=== PATIENT | female | born 1940 | race Caucasian/White ===

== ENCOUNTER → 2017-05-19 | Outpatient (REF) | payer MEDICARE, OTHER | LOC: M LAB REF 13:44 | PROVIDERS: ATTEND Internal Medicine | DX: R56.9 Unspecified convulsions (principal) ==

== ENCOUNTER 2018-08-21 10:43 | Day surgery (SDC) | payer MEDICARE ==
[2018-08-21] MEDS: NS 1,000 ML IV (11:14)
[2018-08-21] MEDS ORDERED: PROPOFOL 200 MG/20 ML VIAL As Ordered ×2 (11:16)
[2018-08-21] MEDS ORDERED: LIDOCAINE 2% INJ 100 MG/5 ML SDV (FOR ANES.) As Ordered (11:17)
== END 2018-08-21 13:07 | disposition home or self-care (01) ==
LOC: M OPP 10:43
DX: Z12.11 Encounter for screening for malignant neoplasm of colon (principal); K63.5 Polyp of colon; K64.0 First degree hemorrhoids; K57.30 Diverticulosis of large intestine without perforation or abscess without bleeding; G40.909 Epilepsy, unspecified, not intractable, without status epilepticus; M85.9 Disorder of bone density and structure, unspecified; Z80.0 Family history of malignant neoplasm of digestive organs; Z88.8 Allergy status to other drugs, medicaments and biological substances; Z79.899 Other long term (current) drug therapy
CPT/HCPCS: 45380

== ENCOUNTER → 2019-01-02 | Outpatient (REF) | payer MEDICARE ==
[~2019-01-02] MED LIST: CALTCHW4 PO; DILA100C PO; MULT1TAB10 PO
[2019-01-02 16:32] LABS: PHENYTOIN (DILANTIN) 3.6 UG/ML (10.0-20.0)
[2019-01-02 16:41] LABS: FOLATE 11.7 NG/ML (>5.4)
== END ==
LOC: M LAB REF 15:50
PROVIDERS: ATTEND Internal Medicine
DX: R56.9 Unspecified convulsions (principal); Z79.899 Other long term (current) drug therapy

== ENCOUNTER 2020-10-06 11:15 | Emergency (ER) | payer MEDICARE ==
[~2020-10-06] VITALS: Ht 172.7 cm; Wt 75.0 kg
[2020-10-06] MEDS ORDERED: AMIO200T3 (11:35)
[2020-10-06] MEDS ORDERED: MIDO5TA (11:35)
[2020-10-06] MEDS ORDERED: GABA-1171 (11:35)
[2020-10-06] MEDS ORDERED: ELIQ2.5T (11:35)
[2020-10-06] MEDS ORDERED: OXYMETAZOLINE 0.05% NASAL SPRAY (AFRIN) ONE (12:15)
[2020-10-06 12:34] LABS: HEMATOCRIT 39.1 % (36.0-47.0); HEMOGLOBIN 11.9 g/dl (12.0-15.5); MEAN CORPUSCULAR HEMOGLOBIN 28.3 pg (27.0-33.0); MEAN CORPUSCULAR HGB CONC 30.4 g/dl (32.0-36.5); MEAN CORPUSCULAR VOLUME 92.9 fl (80.0-96.0); PLATELET COUNT, AUTOMATED 217 10^3/uL (150-450); RED BLOOD COUNT 4.21 10^6/uL (4.00-5.40); WHITE BLOOD COUNT 7.4 10^3/uL (4.0-10.0)
[2020-10-06 12:43] LABS: INR 1.12; PROTHROMBIN TIME 14.6 SECONDS (12.5-14.3)
[2020-10-06 12:44] LABS: PARTIAL THROMBOPLASTIN TIME 30.6 SECONDS (24.2-38.5)
[2020-10-06 17:04] VITALS: BP 133/80
== END 2020-10-06 17:06 | disposition home or self-care (01) ==
LOC: M ED 11:15 → EDBD 11:15 → M ED 17:06
DX: R04.0 Epistaxis (principal); I48.91 Unspecified atrial fibrillation; M81.0 Age-related osteoporosis without current pathological fracture; Z79.899 Other long term (current) drug therapy; Z79.01 Long term (current) use of anticoagulants; Z88.0 Allergy status to penicillin; Z88.8 Allergy status to other drugs, medicaments and biological substances

== ENCOUNTER → 2021-11-23 | Outpatient (REF) | payer MEDICARE ==
[~2021-11-23] MED LIST changes: +AMIO200T49; +BACTDSTA; +ELIQ2.5T; +GABA-1171; +MIDO5TA
== END ==
LOC: M LAB REF 17:23
PROVIDERS: ATTEND Internal Medicine
DX: N39.0 Urinary tract infection, site not specified (principal)

== ENCOUNTER 2021-11-24 15:39 | Emergency (ER) | payer MEDICARE ==
[~2021-11-24] VITALS: Ht 172.7 cm; Wt 77.3 kg
[~2021-11-24 15:39] MED LIST changes: -BACTDSTA
[2021-11-24 15:40] VITALS: BP 128/60
[2021-11-24] MEDS ORDERED: BACTDSTA (15:51)
[2021-11-24] MEDS ORDERED: PERCOCET 5MG/325MG TAB PO ONE (19:05)
== END 2021-11-24 19:37 | disposition home or self-care (01) ==
LOC: M ED 15:39
DX: R22.41 Localized swelling, mass and lump, right lower limb (principal); M25.561 Pain in right knee; I48.91 Unspecified atrial fibrillation; M81.0 Age-related osteoporosis without current pathological fracture; R56.9 Unspecified convulsions; Z87.19 Personal history of other diseases of the digestive system; Z79.899 Other long term (current) drug therapy; Z79.01 Long term (current) use of anticoagulants; Z88.0 Allergy status to penicillin; Z88.8 Allergy status to other drugs, medicaments and biological substances

== ENCOUNTER → 2021-11-27 | Outpatient (CLI) | payer MEDICARE ==
[~2021-11-27] MED LIST changes: +BACTDSTA
== END ==
LOC: M SOG 09:25
PROVIDERS: ATTEND Orthopaedic Surgery Adult Reconstructive Orthopaedic Surgery
DX: M25.561 Pain in right knee (principal)

== ENCOUNTER 2021-12-06 12:24 | Inpatient (IN) | payer MEDICARE ==
[~2021-12-06] VITALS: Ht 172.7 cm; Wt 81.0 kg
[~2021-12-06 12:24] MED LIST changes: -AMIO200T49; +AMIO200T49 PO; -ELIQ2.5T; +ELIQ2.5T PO; -GABA-1171; +GABA-1171 PO; -MIDO5TA; +MIDO5TA PO
[2021-12-06 15:22] LABS: BASO # 0.1 10^3/uL (0.0-0.2); BASO % 0.7 % (0.0-1.0); EOS # 0.5 10^3/uL (0.0-0.5); HEMATOCRIT 38.9 % (36.0-47.0); HEMOGLOBIN 12.4 g/dl (12.0-15.5); LYMPH # 1.2 10^3/uL (1.5-5.0); LYMPH % 12.4 % (24.0-44.0); MEAN CORPUSCULAR HEMOGLOBIN 29.3 pg (27.0-33.0); MEAN CORPUSCULAR HGB CONC 31.9 g/dl (32.0-36.5); MONO # 0.7 10^3/uL (0.0-0.8); MONO % 7.4 % (2.0-8.0); NEUTROPHILS # 7.3 10^3/uL (1.5-8.5); NEUTROPHILS % 74.2 % (36.0-66.0); PLATELET COUNT, AUTOMATED 238 10^3/uL (150-450); RED BLOOD COUNT 4.23 10^6/uL (4.00-5.40); WHITE BLOOD COUNT 9.9 10^3/uL (4.0-10.0)
[2021-12-06 15:42] LABS: RSV AMPLIFICATION NEGATIVE (NEGATIVE)
[2021-12-06 16:37] LABS: ALBUMIN 3.5 GM/DL (3.2-5.2); ALT/SGPT 19 U/L (12-78); BILIRUBIN,TOTAL 0.4 MG/DL (0.2-1.0); BLOOD UREA NITROGEN 21 MG/DL (7-18); CALCIUM LEVEL 8.9 MG/DL (8.8-10.2); CARBON DIOXIDE LEVEL 27 MEQ/L (21-32); CHLORIDE LEVEL 111 MEQ/L (98-107); CREATININE FOR GFR 0.87 MG/DL (0.55-1.30); GLOMERULAR FILTRATION RATE > 60.0 (>39); GLUCOSE, FASTING 89 MG/DL (70-100); POTASSIUM SERUM 4.4 MEQ/L (3.5-5.1); SODIUM LEVEL 142 MEQ/L (136-145); TOTAL PROTEIN 6.3 GM/DL (6.4-8.2)
[2021-12-06] MEDS ORDERED: MOM 30ML SUSPENSION UDC PO PRN (17:15)
[2021-12-06] MEDS ORDERED: ACETAMINOPHEN TAB 650MG DOSE (2X325MG) PO PRN ×2 (17:15→17:50)
[2021-12-06] MEDS ORDERED: HOME MED LIST COMPLETE! XX SCH (17:25)
[2021-12-06] MEDS: APIXABAN 2.5 MG TAB (ELIQUIS) PO SCH (21:14)
[2021-12-06] MEDS: GABAPENTIN 100 MG CAP PO SCH (21:14)
[2021-12-06] MEDS ORDERED: PILL CUTTER 1 EACH XX ONE (22:50)
[2021-12-07 06:05] LABS: HEMATOCRIT 38.2 % (36.0-47.0); HEMOGLOBIN 12.2 g/dl (12.0-15.5); MEAN CORPUSCULAR HEMOGLOBIN 29.5 pg (27.0-33.0); MEAN CORPUSCULAR HGB CONC 31.9 g/dl (32.0-36.5); MEAN CORPUSCULAR VOLUME 92.5 fl (80.0-96.0); PLATELET COUNT, AUTOMATED 214 10^3/uL (150-450); RED BLOOD COUNT 4.13 10^6/uL (4.00-5.40); WHITE BLOOD COUNT 6.7 10^3/uL (4.0-10.0)
[2021-12-07 06:29] LABS: BLOOD UREA NITROGEN 16 MG/DL (7-18); CALCIUM LEVEL 8.9 MG/DL (8.8-10.2); CARBON DIOXIDE LEVEL 26 MEQ/L (21-32); CHLORIDE LEVEL 111 MEQ/L (98-107); CREATININE FOR GFR 0.87 MG/DL (0.55-1.30); GLOMERULAR FILTRATION RATE > 60.0 (>39); GLUCOSE, FASTING 93 MG/DL (70-100); MAGNESIUM LEVEL 2.1 MG/DL (1.8-2.4); POTASSIUM SERUM 4.2 MEQ/L (3.5-5.1); SODIUM LEVEL 143 MEQ/L (136-145)
[2021-12-07 08:30] VITALS: BP 148/73
[2021-12-07] MEDS: AMIODARONE 200 MG TAB (PACERONE) PO SCH (09:43)
[2021-12-07] MEDS: APIXABAN 2.5 MG TAB (ELIQUIS) PO SCH ×2 (09:43→20:12)
[2021-12-07] MEDS: GABAPENTIN 100 MG CAP PO SCH ×3 (09:43→20:12)
[2021-12-07 14:00] VITALS: BP 109/71
[2021-12-07 20:28] VITALS: BP 111/68
[2021-12-07] MEDS: ACETAMINOPHEN 500 MG TAB PO PRN (23:35)
[2021-12-08 05:17] VITALS: BP 114/70
[2021-12-08 05:49] LABS: HEMATOCRIT 38.3 % (36.0-47.0); HEMOGLOBIN 12.1 g/dl (12.0-15.5); MEAN CORPUSCULAR HEMOGLOBIN 29.2 pg (27.0-33.0); MEAN CORPUSCULAR HGB CONC 31.6 g/dl (32.0-36.5); MEAN CORPUSCULAR VOLUME 92.3 fl (80.0-96.0); PLATELET COUNT, AUTOMATED 215 10^3/uL (150-450); RED BLOOD COUNT 4.15 10^6/uL (4.00-5.40); WHITE BLOOD COUNT 6.1 10^3/uL (4.0-10.0)
[2021-12-08 06:14] LABS: BLOOD UREA NITROGEN 16 MG/DL (7-18); CALCIUM LEVEL 8.8 MG/DL (8.8-10.2); CARBON DIOXIDE LEVEL 25 MEQ/L (21-32); CHLORIDE LEVEL 113 MEQ/L (98-107); CREATININE FOR GFR 0.71 MG/DL (0.55-1.30); GLOMERULAR FILTRATION RATE > 60.0 (>39); GLUCOSE, FASTING 96 MG/DL (70-100); MAGNESIUM LEVEL 2.1 MG/DL (1.8-2.4); POTASSIUM SERUM 4.1 MEQ/L (3.5-5.1); SODIUM LEVEL 144 MEQ/L (136-145)
[2021-12-08 08:42] VITALS: BP 114/70
[2021-12-08] MEDS: APIXABAN 2.5 MG TAB (ELIQUIS) PO SCH ×2 (10:06→21:04)
[2021-12-08] MEDS: GABAPENTIN 100 MG CAP PO SCH ×3 (10:07→21:04)
[2021-12-08] MEDS: AMIODARONE 200 MG TAB (PACERONE) PO SCH (10:07)
[2021-12-08 14:00] VITALS: BP 120/70
[2021-12-08] MEDS: ACETAMINOPHEN 500 MG TAB PO PRN (21:04)
[2021-12-08 21:12] VITALS: BP 116/67
[2021-12-09 05:59] LABS: HEMATOCRIT 39.7 % (36.0-47.0); HEMOGLOBIN 12.3 g/dl (12.0-15.5); MEAN CORPUSCULAR HEMOGLOBIN 28.9 pg (27.0-33.0); MEAN CORPUSCULAR VOLUME 93.2 fl (80.0-96.0); PLATELET COUNT, AUTOMATED 217 10^3/uL (150-450); RED BLOOD COUNT 4.26 10^6/uL (4.00-5.40); WHITE BLOOD COUNT 8.5 10^3/uL (4.0-10.0)
[2021-12-09 06:00] VITALS: BP 129/79
[2021-12-09 06:20] LABS: BLOOD UREA NITROGEN 23 MG/DL (7-18); CALCIUM LEVEL 8.8 MG/DL (8.8-10.2); CARBON DIOXIDE LEVEL 26 MEQ/L (21-32); CHLORIDE LEVEL 112 MEQ/L (98-107); CREATININE FOR GFR 0.77 MG/DL (0.55-1.30); GLOMERULAR FILTRATION RATE > 60.0 (>39); GLUCOSE, FASTING 105 MG/DL (70-100); MAGNESIUM LEVEL 2.2 MG/DL (1.8-2.4); POTASSIUM SERUM 4.2 MEQ/L (3.5-5.1); SODIUM LEVEL 145 MEQ/L (136-145)
[2021-12-09] MEDS: AMIODARONE 200 MG TAB (PACERONE) PO SCH (09:23)
[2021-12-09] MEDS: GABAPENTIN 100 MG CAP PO SCH ×3 (09:23→20:41)
[2021-12-09] MEDS: APIXABAN 2.5 MG TAB (ELIQUIS) PO SCH ×2 (09:23→20:41)
[2021-12-09 14:00] VITALS: BP 104/60
[2021-12-09] MEDS: traMADol 50 MG TAB PO PRN (16:08)
[2021-12-09 22:26] VITALS: BP 113/60
[2021-12-10 05:59] LABS: HEMATOCRIT 36.1 % (36.0-47.0); HEMOGLOBIN 11.5 g/dl (12.0-15.5); MEAN CORPUSCULAR HEMOGLOBIN 29.1 pg (27.0-33.0); MEAN CORPUSCULAR HGB CONC 31.9 g/dl (32.0-36.5); MEAN CORPUSCULAR VOLUME 91.4 fl (80.0-96.0); PLATELET COUNT, AUTOMATED 199 10^3/uL (150-450); RED BLOOD COUNT 3.95 10^6/uL (4.00-5.40); WHITE BLOOD COUNT 7.1 10^3/uL (4.0-10.0)
[2021-12-10 06:00] VITALS: BP 114/60
[2021-12-10 06:15] LABS: BLOOD UREA NITROGEN 21 MG/DL (7-18); CALCIUM LEVEL 8.6 MG/DL (8.8-10.2); CARBON DIOXIDE LEVEL 25 MEQ/L (21-32); CHLORIDE LEVEL 114 MEQ/L (98-107); CREATININE FOR GFR 0.69 MG/DL (0.55-1.30); GLOMERULAR FILTRATION RATE > 60.0 (>39); GLUCOSE, FASTING 84 MG/DL (70-100); POTASSIUM SERUM 4.2 MEQ/L (3.5-5.1); SODIUM LEVEL 145 MEQ/L (136-145)
[2021-12-10] MEDS: APIXABAN 2.5 MG TAB (ELIQUIS) PO SCH ×2 (09:24→21:55)
[2021-12-10] MEDS: GABAPENTIN 100 MG CAP PO SCH ×3 (09:24→21:55)
[2021-12-10] MEDS: AMIODARONE 200 MG TAB (PACERONE) PO SCH (09:24)
[2021-12-10 14:00] VITALS: BP 108/59
[2021-12-10] MEDS: traMADol 50 MG TAB PO PRN (16:15)
[2021-12-10 22:00] VITALS: BP 108/59
[2021-12-11 06:00] VITALS: BP 121/72
[2021-12-11] MEDS: AMIODARONE 200 MG TAB (PACERONE) PO SCH (08:12)
[2021-12-11] MEDS: APIXABAN 2.5 MG TAB (ELIQUIS) PO SCH ×2 (08:12→20:12)
[2021-12-11] MEDS: GABAPENTIN 100 MG CAP PO SCH ×3 (08:12→20:12)
[2021-12-11 08:56] LABS: HEMATOCRIT 41.4 % (36.0-47.0); HEMOGLOBIN 13.1 g/dl (12.0-15.5); MEAN CORPUSCULAR HEMOGLOBIN 29.6 pg (27.0-33.0); MEAN CORPUSCULAR HGB CONC 31.6 g/dl (32.0-36.5); MEAN CORPUSCULAR VOLUME 93.5 fl (80.0-96.0); PLATELET COUNT, AUTOMATED 222 10^3/uL (150-450); RED BLOOD COUNT 4.43 10^6/uL (4.00-5.40); WHITE BLOOD COUNT 5.6 10^3/uL (4.0-10.0)
[2021-12-11 09:18] LABS: BLOOD UREA NITROGEN 23 MG/DL (7-18); CALCIUM LEVEL 8.9 MG/DL (8.8-10.2); CARBON DIOXIDE LEVEL 31 MEQ/L (21-32); CHLORIDE LEVEL 110 MEQ/L (98-107); CREATININE FOR GFR 0.83 MG/DL (0.55-1.30); GLOMERULAR FILTRATION RATE > 60.0 (>39); GLUCOSE, FASTING 84 MG/DL (70-100); MAGNESIUM LEVEL 2.1 MG/DL (1.8-2.4); POTASSIUM SERUM 4.1 MEQ/L (3.5-5.1); SODIUM LEVEL 144 MEQ/L (136-145)
[2021-12-11 13:53] VITALS: BP 106/64
[2021-12-11 22:00] VITALS: BP 111/69
[2021-12-12 06:00] VITALS: BP 145/74
[2021-12-12 06:26] LABS: HEMATOCRIT 37.2 % (36.0-47.0); HEMOGLOBIN 11.7 g/dl (12.0-15.5); MEAN CORPUSCULAR HEMOGLOBIN 29.3 pg (27.0-33.0); MEAN CORPUSCULAR HGB CONC 31.5 g/dl (32.0-36.5); PLATELET COUNT, AUTOMATED 194 10^3/uL (150-450)
[2021-12-12 06:51] LABS: BLOOD UREA NITROGEN 23 MG/DL (7-18); CALCIUM LEVEL 8.7 MG/DL (8.8-10.2); CARBON DIOXIDE LEVEL 29 MEQ/L (21-32); CHLORIDE LEVEL 111 MEQ/L (98-107); CREATININE FOR GFR 0.77 MG/DL (0.55-1.30); GLOMERULAR FILTRATION RATE > 60.0 (>39); GLUCOSE, FASTING 91 MG/DL (70-100); SODIUM LEVEL 143 MEQ/L (136-145)
[2021-12-12] MEDS ORDERED: ACE65ERTAB PO (08:22)
[2021-12-12] MEDS: AMIODARONE 200 MG TAB (PACERONE) PO SCH (09:35)
[2021-12-12] MEDS: APIXABAN 2.5 MG TAB (ELIQUIS) PO SCH (09:35)
[2021-12-12] MEDS: GABAPENTIN 100 MG CAP PO SCH (09:35)
== END 2021-12-12 13:03 | disposition home health service (06) | DRG 554 ==
LOC: M ED 12:24 → EDBD 12:24 → M ED INP 17:13 → ENRESERV 12-07 06:36 → M MS5PR 12-07 08:25
PROVIDERS: ADMIT Internal Medicine; ATTEND Internal Medicine
DX: M17.11 Unilateral primary osteoarthritis, right knee (principal); I48.20 Chronic atrial fibrillation, unspecified; Z86.718 Personal history of other venous thrombosis and embolism; Z98.41 Cataract extraction status, right eye; Z98.42 Cataract extraction status, left eye; M85.88 Other specified disorders of bone density and structure, other site; G40.909 Epilepsy, unspecified, not intractable, without status epilepticus; Z90.79 Acquired absence of other genital organ(s); Z90.49 Acquired absence of other specified parts of digestive tract; Z96.652 Presence of left artificial knee joint; Z79.01 Long term (current) use of anticoagulants; Z79.899 Other long term (current) drug therapy; Z88.0 Allergy status to penicillin; Z88.8 Allergy status to other drugs, medicaments and biological substances; Z20.822 Contact with and (suspected) exposure to COVID-19; G89.29 Other chronic pain; M54.9 Dorsalgia, unspecified; Z74.1 Need for assistance with personal care; Z74.09 Other reduced mobility

== ENCOUNTER → 2021-12-15 | Outpatient (CLI) | payer MEDICARE ==
[~2021-12-15] MED LIST changes: +ACE65ERTAB PO
== END ==
LOC: M RAD 14:10
PROVIDERS: ATTEND Orthopaedic Surgery Adult Reconstructive Orthopaedic Surgery
DX: M17.11 Unilateral primary osteoarthritis, right knee (principal)

== ENCOUNTER → 2021-12-24 | Outpatient (CLI) | payer MEDICARE | LOC: M LABSMTC 09:42 | PROVIDERS: ATTEND Anesthesiology | DX: Z01.818 Encounter for other preprocedural examination (principal); Z11.52 Encounter for screening for COVID-19 ==

== ENCOUNTER 2021-12-29 09:08 | Inpatient (IN) | payer MEDICARE ==
[2021-12-29] VITALS (7 sets, daily range): BP systolic 95–101; BP diastolic 52–59
[~2021-12-29] VITALS: Ht 172.7 cm; Wt 77.1 kg
[~2021-12-29 09:08] MED LIST changes: +ACETAMINOPHEN 500 MG TAB PO ONE; +CLONIDINE INJ ONE; +EPINEPHRINE HCL INJ ONE; +LIDOCAINE 1% MDV 20ML VIAL SQ PRN; +LR 1,000 ML IV ONE; +NS 1,000 ML IV ONE; +NS INJ ONE; +PREGABALIN 25 MG CAP (LYRICA) PO ONE; +ROPIVACAINE 0.5% INJ ONE; +TRANEXAMIC ACID 100 MG/ML 10ML VIAL IV ONE; +VANCOMYCIN HCL 1,000 MG, VIAL MATE ADAPTER 1 EACH in NS 250 ML IV ONE; +dexameTHASONE 4 MG/ML 1ML VIAL (J1100 PER 1MG) IV ONE
[2021-12-29] MEDS ORDERED: TRANEXAMIC ACID 100 MG/ML 10ML VIAL As Ordered ONE (10:40)
[2021-12-29] MEDS ORDERED: MIDAZOLAM INJ 2MG/2ML VIAL (J2250 PER 1MG) As Ordered ONE (11:01)
[2021-12-29] MEDS ORDERED: SUGAMMADEX SODIUM 500 MG/5 ML VIAL (BRIDION) As Ordered ONE (11:01)
[2021-12-29] MEDS ORDERED: LIDOCAINE 2% 100MG/5ML SDV (FOR ANES.) As Ordered ONE (11:01)
[2021-12-29] MEDS ORDERED: propofoL 200 MG/20 ML VIAL As Ordered ONE (11:01)
[2021-12-29] MEDS ORDERED: fentaNYL 100 MCG/2 ML INJECTION As Ordered ONE ×2 (11:01→13:20)
[2021-12-29] MEDS ORDERED: dexameTHASONE 4 MG/ML 1ML VIAL (J1100 PER 1MG) As Ordered ONE (11:01)
[2021-12-29] MEDS ORDERED: ROCURONIUM BROMIDE 50 MG/5 ML VIAL As Ordered ONE ×2 (11:01→12:32)
[2021-12-29] MEDS ORDERED: ONDANSETRON 4MG/2ML VIAL As Ordered ONE (11:01)
[2021-12-29] MEDS ORDERED: METOCLOPRAMIDE INJ 10MG/2ML VIAL (J2765 PER 1) As Ordered ONE (11:01)
[2021-12-29] MEDS ORDERED: ePHEDrine SULFATE 25 MG/5 ML(5MG/ML) SYRINGE As Ordered ONE ×2 (11:16→11:17)
[2021-12-29] MEDS ORDERED: ATROPINE SULF 1MG/10ML SYRINGE (J0461) As Ordered ONE (11:17)
[2021-12-29] MEDS ORDERED: ONDANSETRON 4MG/2ML VIAL IV PRN ×2 (13:50→14:00)
[2021-12-29] MEDS ORDERED: HYDROMORPHONE HCL 0.5 MG/ 0.5 ML SYRINGE (J1170 PER 1) IV PRN (13:50)
[2021-12-29] MEDS ORDERED: LR 1,000 ML IV SCH (13:50)
[2021-12-29] MEDS ORDERED: fentaNYL 100 MCG/2 ML INJECTION IV PRN (13:50)
[2021-12-29] MEDS ORDERED: oxyCODONE 5MG TAB PO PRN ×3 (13:50→14:00)
[2021-12-29] MEDS ORDERED: SENNA 8.6 MG TAB (SENOKOT) PO PRN (14:00)
[2021-12-29] MEDS ORDERED: traMADol 50 MG TAB PO PRN (14:00)
[2021-12-29] MEDS: GABAPENTIN 100 MG CAP PO SCH ×2 (16:00→20:44)
[2021-12-29] MEDS: ACETAMINOPHEN TAB 650MG DOSE (2X325MG) PO SCH (18:00)
[2021-12-29] MEDS: DOCUSATE SODIUM 100MG CAPSULE PO SCH (20:44)
[2021-12-29] MEDS: AMIODARONE 200 MG TAB (PACERONE) PO SCH (20:44)
[2021-12-29] MEDS: LR 1,000 ML IV SCH (20:45)
[2021-12-29] MEDS: VANCOMYCIN HCL 1,000 MG, VIAL MATE ADAPTER 1 EACH in NS 250 ML IV SCH (22:26)
[2021-12-30] MEDS: ACETAMINOPHEN TAB 650MG DOSE (2X325MG) PO SCH ×3 (00:27→12:36)
[2021-12-30] MEDS: LR 1,000 ML IV SCH (00:27)
[2021-12-30 00:30] VITALS: BP 99/52
[2021-12-30 06:00] VITALS: BP 99/51
[2021-12-30 07:18] LABS: HEMATOCRIT 31.8 % (36.0-47.0); HEMOGLOBIN 10.1 g/dl (12.0-15.5); MEAN CORPUSCULAR HEMOGLOBIN 29.4 pg (27.0-33.0); MEAN CORPUSCULAR HGB CONC 31.8 g/dl (32.0-36.5); MEAN CORPUSCULAR VOLUME 92.4 fl (80.0-96.0); PLATELET COUNT, AUTOMATED 207 10^3/uL (150-450); RED BLOOD COUNT 3.44 10^6/uL (4.00-5.40); WHITE BLOOD COUNT 15.3 10^3/uL (4.0-10.0)
[2021-12-30 07:26] LABS: BLOOD UREA NITROGEN 20 MG/DL (7-18); CALCIUM LEVEL 8.6 MG/DL (8.8-10.2); CARBON DIOXIDE LEVEL 26 MEQ/L (21-32); CHLORIDE LEVEL 109 MEQ/L (98-107); CREATININE FOR GFR 0.95 MG/DL (0.55-1.30); GLOMERULAR FILTRATION RATE > 60.0 (>39); GLUCOSE, FASTING 125 MG/DL (70-100); MAGNESIUM LEVEL 2.1 MG/DL (1.8-2.4); PHOSPHORUS LEVEL 3.7 MG/DL (2.5-4.9); POTASSIUM SERUM 4.8 MEQ/L (3.5-5.1); SODIUM LEVEL 141 MEQ/L (136-145)
[2021-12-30] MEDS ORDERED: APIXABAN 2.5 MG TAB (ELIQUIS) PO SCH (09:00)
[2021-12-30] MEDS ORDERED: ASCORBIC ACID 500 MG TAB PO SCH (09:00)
[2021-12-30] MEDS ORDERED: FERROUS SULFATE 325MG TAB PO SCH (09:00)
[2021-12-30] MEDS: AMIODARONE 200 MG TAB (PACERONE) PO SCH (09:45)
[2021-12-30] MEDS: DOCUSATE SODIUM 100MG CAPSULE PO SCH (09:45)
[2021-12-30] MEDS: GABAPENTIN 100 MG CAP PO SCH (09:46)
[2021-12-30] MEDS: VANCOMYCIN HCL 1,000 MG, VIAL MATE ADAPTER 1 EACH in NS 250 ML IV SCH (09:46)
[2021-12-30 10:00] VITALS: BP 97/50
[2021-12-30] MEDS ORDERED: ELIQ5TAB PO (10:54)
[2021-12-30 14:00] VITALS: BP 96/50
[2021-12-30] MEDS ORDERED: APIXABAN 5 MG TAB (ELIQUIS) PO SCH (21:00)
== END 2021-12-30 15:30 | DRG 470 ==
LOC: M SDC 09:08 → M MS5PR 14:17
PROVIDERS: ADMIT Internal Medicine; ATTEND Orthopaedic Surgery Adult Reconstructive Orthopaedic Surgery
PROC: 8E0Y0CZ Robotic Assisted Procedure of Lower Extremity, Open Approach (ICD-10-PCS; 2021-12-29)
PROC: 0SRC0J9 Replacement of Right Knee Joint with Synthetic Substitute, Cemented, Open Approach (ICD-10-PCS; principal; 2021-12-29 10:40)
DX: M17.11 Unilateral primary osteoarthritis, right knee (principal); G82.20 Paraplegia, unspecified; G62.9 Polyneuropathy, unspecified; I48.91 Unspecified atrial fibrillation; Z90.49 Acquired absence of other specified parts of digestive tract; Z96.652 Presence of left artificial knee joint; Z79.01 Long term (current) use of anticoagulants; Z79.899 Other long term (current) drug therapy; Z88.0 Allergy status to penicillin; Z88.8 Allergy status to other drugs, medicaments and biological substances; Z66 Do not resuscitate; I95.9 Hypotension, unspecified

== ENCOUNTER 2021-12-30 14:07 | Inpatient (IN) | payer MEDICARE ==
[~2021-12-30] VITALS: Ht 172.7 cm; Wt 87.3 kg
[~2021-12-30 14:07] MED LIST changes: -ACETAMINOPHEN 500 MG TAB PO ONE; -CLONIDINE INJ ONE; +ELIQ5TAB PO; -EPINEPHRINE HCL INJ ONE; -LIDOCAINE 1% MDV 20ML VIAL SQ PRN; -LR 1,000 ML IV ONE; -NS 1,000 ML IV ONE; -NS INJ ONE; -PREGABALIN 25 MG CAP (LYRICA) PO ONE; -ROPIVACAINE 0.5% INJ ONE; -TRANEXAMIC ACID 100 MG/ML 10ML VIAL IV ONE; -VANCOMYCIN HCL 1,000 MG, VIAL MATE ADAPTER 1 EACH in NS 250 ML IV ONE; -dexameTHASONE 4 MG/ML 1ML VIAL (J1100 PER 1MG) IV ONE
[2021-12-30] MEDS ORDERED: BISACODYL 10 MG SUPP PR PRN (15:10)
[2021-12-30 15:23] VITALS: BP 101/56
[2021-12-30] MEDS: REMEDY PHYTOPLEX Z-GUARD PASTE 113GM TUBE (FROM STOREROOM PRODUCT) TOP SCH ×2 (16:00→20:06)
[2021-12-30] MEDS: GABAPENTIN 100 MG CAP PO SCH ×2 (17:03→20:05)
[2021-12-30] MEDS: ACETAMINOPHEN 500 MG TAB PO SCH ×2 (17:04→20:05)
[2021-12-30 20:00] VITALS: BP 94/54
[2021-12-30] MEDS: APIXABAN 5 MG TAB (ELIQUIS) PO SCH (20:05)
[2021-12-30] MEDS: DOCUSATE SODIUM 100MG CAPSULE PO SCH (20:21)
[2021-12-30] MEDS: SENNA 8.6 MG TAB (SENOKOT) PO SCH (20:21)
[2021-12-31 06:04] VITALS: BP 104/53
[2021-12-31 08:55] LABS: BASO % 0.4 % (0.0-1.0); EOS # 0.1 10^3/uL (0.0-0.5); EOS % 1.4 % (0.0-3.0); HEMATOCRIT 29.5 % (36.0-47.0); HEMOGLOBIN 9.6 g/dl (12.0-15.5); LYMPH # 1.3 10^3/uL (1.5-5.0); LYMPH % 14.4 % (24.0-44.0); MEAN CORPUSCULAR HGB CONC 32.5 g/dl (32.0-36.5); MEAN CORPUSCULAR VOLUME 92.2 fl (80.0-96.0); MONO # 0.8 10^3/uL (0.0-0.8); MONO % 9.1 % (2.0-8.0); NEUTROPHILS # 6.7 10^3/uL (1.5-8.5); NEUTROPHILS % 74.4 % (36.0-66.0); PLATELET COUNT, AUTOMATED 170 10^3/uL (150-450)
[2021-12-31] MEDS: FERROUS SULFATE 325MG TAB PO SCH (09:02)
[2021-12-31] MEDS: APIXABAN 5 MG TAB (ELIQUIS) PO SCH ×2 (09:02→20:42)
[2021-12-31] MEDS: DOCUSATE SODIUM 100MG CAPSULE PO SCH ×2 (09:02→20:42)
[2021-12-31] MEDS: AMIODARONE 200 MG TAB (PACERONE) PO SCH (09:02)
[2021-12-31] MEDS: ASCORBIC ACID 500 MG TAB PO SCH (09:02)
[2021-12-31] MEDS: PANTOPRAZOLE 40MG TAB (PROTONIX) PO SCH (09:02)
[2021-12-31] MEDS: ACETAMINOPHEN 500 MG TAB PO SCH ×3 (09:03→20:43)
[2021-12-31] MEDS: REMEDY PHYTOPLEX Z-GUARD PASTE 113GM TUBE (FROM STOREROOM PRODUCT) TOP SCH ×3 (09:03→20:44)
[2021-12-31] MEDS: GABAPENTIN 100 MG CAP PO SCH ×3 (09:11→20:42)
[2021-12-31 09:16] LABS: ALT/SGPT 15 U/L (12-78); BILIRUBIN,TOTAL 0.3 MG/DL (0.2-1.0); BLOOD UREA NITROGEN 27 MG/DL (7-18); CALCIUM LEVEL 8.5 MG/DL (8.8-10.2); CARBON DIOXIDE LEVEL 28 MEQ/L (21-32); CHLORIDE LEVEL 113 MEQ/L (98-107); CREATININE FOR GFR 0.88 MG/DL (0.55-1.30); GLOMERULAR FILTRATION RATE > 60.0 (>39); GLUCOSE, FASTING 83 MG/DL (70-100); MAGNESIUM LEVEL 2.2 MG/DL (1.8-2.4); PHOSPHORUS LEVEL 3.7 MG/DL (2.5-4.9); POTASSIUM SERUM 4.1 MEQ/L (3.5-5.1); SODIUM LEVEL 145 MEQ/L (136-145); TOTAL PROTEIN 5.2 GM/DL (6.4-8.2)
[2021-12-31 14:00] VITALS: BP 108/53
[2021-12-31] MEDS ORDERED: HOME MED LIST COMPLETE! XX SCH (16:15)
[2021-12-31 19:44] VITALS: BP 115/58
[2021-12-31] MEDS: SENNA 8.6 MG TAB (SENOKOT) PO SCH (20:42)
[2022-01-01 05:39] VITALS: BP 107/57
[2022-01-01] MEDS: REMEDY PHYTOPLEX Z-GUARD PASTE 113GM TUBE (FROM STOREROOM PRODUCT) TOP SCH ×3 (09:00→20:52)
[2022-01-01] MEDS: DOCUSATE SODIUM 100MG CAPSULE PO SCH ×2 (09:00→20:50)
[2022-01-01] MEDS: APIXABAN 5 MG TAB (ELIQUIS) PO SCH ×2 (09:27→20:50)
[2022-01-01] MEDS: ASCORBIC ACID 500 MG TAB PO SCH (09:27)
[2022-01-01] MEDS: FERROUS SULFATE 325MG TAB PO SCH (09:27)
[2022-01-01] MEDS: PANTOPRAZOLE 40MG TAB (PROTONIX) PO SCH (09:28)
[2022-01-01] MEDS: ACETAMINOPHEN 500 MG TAB PO SCH ×3 (09:28→20:51)
[2022-01-01] MEDS: GABAPENTIN 100 MG CAP PO SCH ×3 (09:28→20:51)
[2022-01-01] MEDS: AMIODARONE 200 MG TAB (PACERONE) PO SCH (09:28)
[2022-01-01 14:00] VITALS: BP 110/55
[2022-01-01 14:58] LABS: BASO % 0.1 % (0.0-1.0); EOS # 0.2 10^3/uL (0.0-0.5); EOS % 2.3 % (0.0-3.0); HEMATOCRIT 29.5 % (36.0-47.0); HEMOGLOBIN 9.3 g/dl (12.0-15.5); LYMPH # 0.8 10^3/uL (1.5-5.0); LYMPH % 8.8 % (24.0-44.0); MEAN CORPUSCULAR HEMOGLOBIN 29.9 pg (27.0-33.0); MEAN CORPUSCULAR HGB CONC 31.5 g/dl (32.0-36.5); MEAN CORPUSCULAR VOLUME 94.9 fl (80.0-96.0); MONO # 0.9 10^3/uL (0.0-0.8); MONO % 9.6 % (2.0-8.0); NEUTROPHILS # 7.1 10^3/uL (1.5-8.5); NEUTROPHILS % 78.6 % (36.0-66.0); PLATELET COUNT, AUTOMATED 177 10^3/uL (150-450); RED BLOOD COUNT 3.11 10^6/uL (4.00-5.40); WHITE BLOOD COUNT 9.1 10^3/uL (4.0-10.0)
[2022-01-01 15:18] LABS: BLOOD UREA NITROGEN 24 MG/DL (7-18); CALCIUM LEVEL 8.2 MG/DL (8.8-10.2); CARBON DIOXIDE LEVEL 29 MEQ/L (21-32); CHLORIDE LEVEL 112 MEQ/L (98-107); CREATININE FOR GFR 0.85 MG/DL (0.55-1.30); GLOMERULAR FILTRATION RATE > 60.0 (>39); GLUCOSE, FASTING 128 MG/DL (70-100); POTASSIUM SERUM 4.2 MEQ/L (3.5-5.1); SODIUM LEVEL 145 MEQ/L (136-145)
[2022-01-01 20:09] VITALS: BP 104/57
[2022-01-01] MEDS: SENNA 8.6 MG TAB (SENOKOT) PO SCH (20:50)
[2022-01-02 06:05] VITALS: BP 114/55
[2022-01-02] MEDS: DOCUSATE SODIUM 100MG CAPSULE PO SCH ×2 (09:00→20:12)
[2022-01-02] MEDS: FERROUS SULFATE 325MG TAB PO SCH (09:26)
[2022-01-02] MEDS: AMIODARONE 200 MG TAB (PACERONE) PO SCH (09:26)
[2022-01-02] MEDS: PANTOPRAZOLE 40MG TAB (PROTONIX) PO SCH (09:26)
[2022-01-02] MEDS: GABAPENTIN 100 MG CAP PO SCH ×3 (09:26→20:12)
[2022-01-02] MEDS: APIXABAN 5 MG TAB (ELIQUIS) PO SCH ×2 (09:27→20:13)
[2022-01-02] MEDS: ASCORBIC ACID 500 MG TAB PO SCH (09:27)
[2022-01-02] MEDS: ACETAMINOPHEN 500 MG TAB PO SCH ×3 (09:28→20:13)
[2022-01-02] MEDS: REMEDY PHYTOPLEX Z-GUARD PASTE 113GM TUBE (FROM STOREROOM PRODUCT) TOP SCH ×3 (09:28→20:14)
[2022-01-02] MEDS: FUROSEMIDE 20 MG TAB PO SCH (09:29)
[2022-01-02 14:00] VITALS: BP 110/59
[2022-01-02 20:11] VITALS: BP 121/60
[2022-01-02] MEDS: SENNA 8.6 MG TAB (SENOKOT) PO SCH (20:12)
[2022-01-03 06:00] VITALS: BP 116/66
[2022-01-03] MEDS: DOCUSATE SODIUM 100MG CAPSULE PO SCH ×2 (09:00→21:00)
[2022-01-03] MEDS: PANTOPRAZOLE 40MG TAB (PROTONIX) PO SCH (09:45)
[2022-01-03] MEDS: ASCORBIC ACID 500 MG TAB PO SCH (09:45)
[2022-01-03] MEDS: GABAPENTIN 100 MG CAP PO SCH ×3 (09:46→21:00)
[2022-01-03] MEDS: FERROUS SULFATE 325MG TAB PO SCH (09:46)
[2022-01-03] MEDS: ACETAMINOPHEN 500 MG TAB PO SCH ×3 (09:46→21:01)
[2022-01-03] MEDS: FUROSEMIDE 20 MG TAB PO SCH (09:46)
[2022-01-03] MEDS: APIXABAN 5 MG TAB (ELIQUIS) PO SCH ×2 (09:47→21:01)
[2022-01-03] MEDS: AMIODARONE 200 MG TAB (PACERONE) PO SCH (09:47)
[2022-01-03] MEDS: REMEDY PHYTOPLEX Z-GUARD PASTE 113GM TUBE (FROM STOREROOM PRODUCT) TOP SCH ×3 (09:48→21:02)
[2022-01-03 14:00] VITALS: BP 111/58
[2022-01-03] MEDS: SENNA 8.6 MG TAB (SENOKOT) PO SCH (21:00)
[2022-01-03 21:30] VITALS: BP 120/63
[2022-01-04 06:04] VITALS: BP 110/60
[2022-01-04 07:37] LABS: BASO % 0.6 % (0.0-1.0); EOS # 0.3 10^3/uL (0.0-0.5); EOS % 4.8 % (0.0-3.0); HEMATOCRIT 29.4 % (36.0-47.0); HEMOGLOBIN 9.4 g/dl (12.0-15.5); LYMPH # 0.9 10^3/uL (1.5-5.0); LYMPH % 12.8 % (24.0-44.0); MEAN CORPUSCULAR HEMOGLOBIN 29.7 pg (27.0-33.0); MEAN CORPUSCULAR VOLUME 92.7 fl (80.0-96.0); MONO # 0.6 10^3/uL (0.0-0.8); MONO % 8.2 % (2.0-8.0); NEUTROPHILS # 4.9 10^3/uL (1.5-8.5); NEUTROPHILS % 72.7 % (36.0-66.0); PLATELET COUNT, AUTOMATED 236 10^3/uL (150-450); RED BLOOD COUNT 3.17 10^6/uL (4.00-5.40); WHITE BLOOD COUNT 6.7 10^3/uL (4.0-10.0)
[2022-01-04 07:59] LABS: BLOOD UREA NITROGEN 18 MG/DL (7-18); CALCIUM LEVEL 8.1 MG/DL (8.8-10.2); CARBON DIOXIDE LEVEL 27 MEQ/L (21-32); CHLORIDE LEVEL 114 MEQ/L (98-107); CREATININE FOR GFR 0.69 MG/DL (0.55-1.30); GLOMERULAR FILTRATION RATE > 60.0 (>39); GLUCOSE, FASTING 85 MG/DL (70-100); POTASSIUM SERUM 3.9 MEQ/L (3.5-5.1); SODIUM LEVEL 145 MEQ/L (136-145)
[2022-01-04] MEDS: AMIODARONE 200 MG TAB (PACERONE) PO SCH (09:15)
[2022-01-04] MEDS: DOCUSATE SODIUM 100MG CAPSULE PO SCH ×2 (09:15→20:20)
[2022-01-04] MEDS: FERROUS SULFATE 325MG TAB PO SCH (09:15)
[2022-01-04] MEDS: ASCORBIC ACID 500 MG TAB PO SCH (09:15)
[2022-01-04] MEDS: PANTOPRAZOLE 40MG TAB (PROTONIX) PO SCH (09:15)
[2022-01-04] MEDS: APIXABAN 5 MG TAB (ELIQUIS) PO SCH ×2 (09:15→20:20)
[2022-01-04] MEDS: FUROSEMIDE 20 MG TAB PO SCH (09:16)
[2022-01-04] MEDS: GABAPENTIN 100 MG CAP PO SCH ×3 (09:16→20:21)
[2022-01-04] MEDS: ACETAMINOPHEN 500 MG TAB PO SCH ×3 (09:16→20:21)
[2022-01-04] MEDS: REMEDY PHYTOPLEX Z-GUARD PASTE 113GM TUBE (FROM STOREROOM PRODUCT) TOP SCH ×3 (09:17→20:21)
[2022-01-04 14:00] VITALS: BP 125/65
[2022-01-04 20:17] VITALS: BP 133/62
[2022-01-04] MEDS: SENNA 8.6 MG TAB (SENOKOT) PO SCH (20:22)
[2022-01-05 06:04] VITALS: BP 123/68
[2022-01-05] MEDS: FUROSEMIDE 40 MG TAB PO SCH (09:07)
[2022-01-05] MEDS: ASCORBIC ACID 500 MG TAB PO SCH (09:08)
[2022-01-05] MEDS: AMIODARONE 200 MG TAB (PACERONE) PO SCH (09:08)
[2022-01-05] MEDS: PANTOPRAZOLE 40MG TAB (PROTONIX) PO SCH (09:08)
[2022-01-05] MEDS: DOCUSATE SODIUM 100MG CAPSULE PO SCH ×2 (09:08→20:50)
[2022-01-05] MEDS: FERROUS SULFATE 325MG TAB PO SCH (09:08)
[2022-01-05] MEDS: APIXABAN 5 MG TAB (ELIQUIS) PO SCH ×2 (09:08→20:50)
[2022-01-05] MEDS: GABAPENTIN 100 MG CAP PO SCH ×3 (09:08→20:51)
[2022-01-05] MEDS: ACETAMINOPHEN 500 MG TAB PO SCH ×3 (09:09→20:51)
[2022-01-05] MEDS: REMEDY PHYTOPLEX Z-GUARD PASTE 113GM TUBE (FROM STOREROOM PRODUCT) TOP SCH ×3 (09:10→20:52)
[2022-01-05 15:00] VITALS: BP 102/68
[2022-01-05 19:36] VITALS: BP 111/59
[2022-01-05] MEDS: SENNA 8.6 MG TAB (SENOKOT) PO SCH (20:44)
[2022-01-06 05:31] VITALS: BP 118/64
[2022-01-06] MEDS: DOCUSATE SODIUM 100MG CAPSULE PO SCH ×2 (09:41→20:39)
[2022-01-06] MEDS: GABAPENTIN 100 MG CAP PO SCH ×3 (09:42→20:40)
[2022-01-06] MEDS: PANTOPRAZOLE 40MG TAB (PROTONIX) PO SCH (09:42)
[2022-01-06] MEDS: ASCORBIC ACID 500 MG TAB PO SCH (09:42)
[2022-01-06] MEDS: FERROUS SULFATE 325MG TAB PO SCH (09:42)
[2022-01-06] MEDS: ACETAMINOPHEN 500 MG TAB PO SCH ×3 (09:43→20:40)
[2022-01-06] MEDS: APIXABAN 5 MG TAB (ELIQUIS) PO SCH ×2 (09:43→20:40)
[2022-01-06] MEDS: AMIODARONE 200 MG TAB (PACERONE) PO SCH (09:43)
[2022-01-06] MEDS: FUROSEMIDE 40 MG TAB PO SCH (09:43)
[2022-01-06] MEDS: REMEDY PHYTOPLEX Z-GUARD PASTE 113GM TUBE (FROM STOREROOM PRODUCT) TOP SCH ×3 (09:44→20:41)
[2022-01-06 12:14] LABS: BASO % 0.4 % (0.0-1.0); EOS # 0.3 10^3/uL (0.0-0.5); EOS % 4.8 % (0.0-3.0); HEMATOCRIT 29.9 % (36.0-47.0); HEMOGLOBIN 9.5 g/dl (12.0-15.5); LYMPH # 0.6 10^3/uL (1.5-5.0); LYMPH % 8.3 % (24.0-44.0); MEAN CORPUSCULAR HEMOGLOBIN 29.7 pg (27.0-33.0); MEAN CORPUSCULAR HGB CONC 31.8 g/dl (32.0-36.5); MEAN CORPUSCULAR VOLUME 93.4 fl (80.0-96.0); MONO # 0.9 10^3/uL (0.0-0.8); MONO % 12.7 % (2.0-8.0); NEUTROPHILS # 5.2 10^3/uL (1.5-8.5); NEUTROPHILS % 72.8 % (36.0-66.0); PLATELET COUNT, AUTOMATED 234 10^3/uL (150-450); WHITE BLOOD COUNT 7.1 10^3/uL (4.0-10.0)
[2022-01-06 12:33] LABS: BLOOD UREA NITROGEN 19 MG/DL (7-18); CALCIUM LEVEL 8.2 MG/DL (8.8-10.2); CARBON DIOXIDE LEVEL 29 MEQ/L (21-32); CHLORIDE LEVEL 112 MEQ/L (98-107); CREATININE FOR GFR 0.78 MG/DL (0.55-1.30); GLOMERULAR FILTRATION RATE > 60.0 (>39); GLUCOSE, FASTING 79 MG/DL (70-100); POTASSIUM SERUM 3.9 MEQ/L (3.5-5.1); SODIUM LEVEL 144 MEQ/L (136-145)
[2022-01-06 14:00] VITALS: BP 111/66
[2022-01-06 20:00] VITALS: BP 118/64
[2022-01-06] MEDS: SENNA 8.6 MG TAB (SENOKOT) PO SCH (20:40)
[2022-01-07 06:00] VITALS: BP 122/64
[2022-01-07] MEDS: FERROUS SULFATE 325MG TAB PO SCH (09:22)
[2022-01-07] MEDS: APIXABAN 5 MG TAB (ELIQUIS) PO SCH ×2 (09:22→20:24)
[2022-01-07] MEDS: PANTOPRAZOLE 40MG TAB (PROTONIX) PO SCH (09:22)
[2022-01-07] MEDS: ASCORBIC ACID 500 MG TAB PO SCH (09:22)
[2022-01-07] MEDS: DOCUSATE SODIUM 100MG CAPSULE PO SCH ×2 (09:22→21:00)
[2022-01-07] MEDS: GABAPENTIN 100 MG CAP PO SCH ×3 (09:22→20:24)
[2022-01-07] MEDS: AMIODARONE 200 MG TAB (PACERONE) PO SCH (09:22)
[2022-01-07] MEDS: REMEDY PHYTOPLEX Z-GUARD PASTE 113GM TUBE (FROM STOREROOM PRODUCT) TOP SCH ×3 (09:23→21:00)
[2022-01-07] MEDS: ACETAMINOPHEN 500 MG TAB PO SCH ×3 (09:23→21:00)
[2022-01-07] MEDS: FUROSEMIDE 40 MG TAB PO SCH (09:23)
[2022-01-07 14:00] VITALS: BP 112/59
[2022-01-07 20:08] VITALS: BP 122/56
[2022-01-07] MEDS: SENNA 8.6 MG TAB (SENOKOT) PO SCH (21:00)
[2022-01-08 05:46] VITALS: BP 129/66
[2022-01-08 06:22] LABS: BASO % 0.6 % (0.0-1.0); EOS # 0.3 10^3/uL (0.0-0.5); EOS % 5.6 % (0.0-3.0); HEMATOCRIT 28.6 % (36.0-47.0); LYMPH # 0.7 10^3/uL (1.5-5.0); LYMPH % 13.8 % (24.0-44.0); MEAN CORPUSCULAR HEMOGLOBIN 29.7 pg (27.0-33.0); MEAN CORPUSCULAR HGB CONC 31.5 g/dl (32.0-36.5); MEAN CORPUSCULAR VOLUME 94.4 fl (80.0-96.0); MONO # 0.8 10^3/uL (0.0-0.8); MONO % 15.6 % (2.0-8.0); NEUTROPHILS # 3.2 10^3/uL (1.5-8.5); NEUTROPHILS % 63.6 % (36.0-66.0); PLATELET COUNT, AUTOMATED 240 10^3/uL (150-450); RED BLOOD COUNT 3.03 10^6/uL (4.00-5.40)
[2022-01-08 06:45] LABS: BLOOD UREA NITROGEN 20 MG/DL (7-18); CALCIUM LEVEL 8.2 MG/DL (8.8-10.2); CARBON DIOXIDE LEVEL 31 MEQ/L (21-32); CHLORIDE LEVEL 113 MEQ/L (98-107); GLOMERULAR FILTRATION RATE > 60.0 (>39); GLUCOSE, FASTING 91 MG/DL (70-100); POTASSIUM SERUM 3.7 MEQ/L (3.5-5.1); SODIUM LEVEL 145 MEQ/L (136-145)
[2022-01-08 09:00] VITALS: BP 139/67
[2022-01-08] MEDS: REMEDY PHYTOPLEX Z-GUARD PASTE 113GM TUBE (FROM STOREROOM PRODUCT) TOP SCH ×2 (09:00→16:00)
[2022-01-08] MEDS: PANTOPRAZOLE 40MG TAB (PROTONIX) PO SCH ×2 (09:00→09:39)
[2022-01-08] MEDS: DOCUSATE SODIUM 100MG CAPSULE PO SCH (09:00)
[2022-01-08] MEDS: FUROSEMIDE 40 MG TAB PO SCH ×2 (09:00→09:38)
[2022-01-08] MEDS: ASCORBIC ACID 500 MG TAB PO SCH ×2 (09:00→09:39)
[2022-01-08] MEDS: FERROUS SULFATE 325MG TAB PO SCH ×2 (09:00→09:39)
[2022-01-08] MEDS: GABAPENTIN 100 MG CAP PO SCH ×2 (09:37→16:31)
[2022-01-08] MEDS: ACETAMINOPHEN 500 MG TAB PO SCH ×2 (09:38→16:00)
[2022-01-08] MEDS: oxyCODONE 5MG TAB PO PRN ×2 (09:38→13:58)
[2022-01-08] MEDS: APIXABAN 5 MG TAB (ELIQUIS) PO SCH (09:39)
[2022-01-08] MEDS: AMIODARONE 200 MG TAB (PACERONE) PO SCH (09:39)
[2022-01-08] MEDS ORDERED: Zinc Oxide/Petrolatum,White TOP (13:46)
[2022-01-08] MEDS ORDERED: FURO40TA2 PO (13:46)
[2022-01-08] MEDS ORDERED: ACET-683 PO (13:46)
[2022-01-08] MEDS ORDERED: ASCO50TA PO (13:46)
[2022-01-08] MEDS ORDERED: PANT40TA29 PO (13:46)
[2022-01-08] MEDS ORDERED: OXYC-517 PO (13:46)
[2022-01-08 14:00] VITALS: BP 102/55
[2022-01-08] MEDS ORDERED: MORPHINE 4 MG/ML 1ML VIAL/SYRINGE IV ONE (16:55)
[2022-01-08 17:12] LABS: INR 1.21; PROTHROMBIN TIME 15.7 SECONDS (12.7-14.5)
== END 2022-01-08 18:00 | disposition short-term general hospital (02) | DRG 560 ==
LOC: M PM&R 15:23
PROVIDERS: ADMIT Physical Medicine & Rehabilitation; ATTEND Physical Medicine & Rehabilitation
DX: Z47.1 Aftercare following joint replacement surgery (principal); G82.22 Paraplegia, incomplete; S72.352A Displaced comminuted fracture of shaft of left femur, initial encounter for closed fracture; M17.11 Unilateral primary osteoarthritis, right knee; Z96.653 Presence of artificial knee joint, bilateral; I48.91 Unspecified atrial fibrillation; D64.9 Anemia, unspecified; Z74.09 Other reduced mobility; Z74.1 Need for assistance with personal care; G62.89 Other specified polyneuropathies; L23.1 Allergic contact dermatitis due to adhesives; S14.109S Unspecified injury at unspecified level of cervical spinal cord, sequela; R60.0 Localized edema; Z66 Do not resuscitate; Z79.01 Long term (current) use of anticoagulants; Z79.899 Other long term (current) drug therapy; Z88.0 Allergy status to penicillin; Z88.8 Allergy status to other drugs, medicaments and biological substances; W18.49XA Other slipping, tripping and stumbling without falling, initial encounter; Y92.239 Unspecified place in hospital as the place of occurrence of the external cause; Y99.8 Other external cause status

== ENCOUNTER 2022-01-08 12:14 | Inpatient (IN) | payer MEDICARE ==
[~2022-01-08] VITALS: Ht 172.7 cm; Wt 87.3 kg
[2022-01-08] MEDS ORDERED: BISACODYL 10 MG SUPP PR PRN (12:45)
[2022-01-08] MEDS ORDERED: SENNA 8.6 MG TAB (SENOKOT) PO PRN (12:45)
[2022-01-08] MEDS ORDERED: ACETAMINOPHEN TAB 650MG DOSE (2X325MG) PO PRN (12:45)
[2022-01-08] MEDS ORDERED: Zinc Oxide/Petrolatum,White TOP (13:46)
[2022-01-08] MEDS ORDERED: OXYC-517 PO (13:46)
[2022-01-08] MEDS ORDERED: ASCO50TA PO (13:46)
[2022-01-08] MEDS ORDERED: PANT40TA29 PO (13:46)
[2022-01-08] MEDS ORDERED: ACET-683 PO (13:46)
[2022-01-08] MEDS ORDERED: FURO40TA2 PO (13:46)
[2022-01-08 18:15] VITALS: BP 100/50
[2022-01-08] MEDS: GABAPENTIN 100 MG CAP PO SCH ×2 (18:25→21:11)
[2022-01-08] MEDS: DOCUSATE SODIUM 100MG CAPSULE PO SCH (21:00)
[2022-01-08] MEDS: MORPHINE 2 MG/ML 1ML VIAL IV PRN (21:10)
[2022-01-08 21:54] VITALS: BP 99/46
[2022-01-09] VITALS (11 sets, daily range): BP systolic 108–122; BP diastolic 49–66
[2022-01-09] MEDS: MORPHINE 2 MG/ML 1ML VIAL IV PRN ×3 (00:40→09:59)
[2022-01-09 07:45] LABS: BASO % 0.4 % (0.0-1.0); EOS # 0.2 10^3/uL (0.0-0.5); EOS % 2.7 % (0.0-3.0); LYMPH # 0.8 10^3/uL (1.5-5.0); LYMPH % 11.2 % (24.0-44.0); MEAN CORPUSCULAR HEMOGLOBIN 30.1 pg (27.0-33.0); MONO # 0.9 10^3/uL (0.0-0.8); MONO % 11.9 % (2.0-8.0); NEUTROPHILS # 5.2 10^3/uL (1.5-8.5); NEUTROPHILS % 73.1 % (36.0-66.0); PLATELET COUNT, AUTOMATED 229 10^3/uL (150-450); RED BLOOD COUNT 2.66 10^6/uL (4.00-5.40); WHITE BLOOD COUNT 7.2 10^3/uL (4.0-10.0)
[2022-01-09 07:56] LABS: INR 1.09; PROTHROMBIN TIME 14.5 SECONDS (12.7-14.5)
[2022-01-09 07:57] LABS: PARTIAL THROMBOPLASTIN TIME 34.8 SECONDS (25.9-37.0)
[2022-01-09 08:16] LABS: BLOOD UREA NITROGEN 20 MG/DL (7-18); CALCIUM LEVEL 8.1 MG/DL (8.8-10.2); CARBON DIOXIDE LEVEL 29 MEQ/L (21-32); CHLORIDE LEVEL 111 MEQ/L (98-107); CREATININE FOR GFR 0.77 MG/DL (0.55-1.30); GLOMERULAR FILTRATION RATE > 60.0 (>39); GLUCOSE, FASTING 93 MG/DL (70-100); MAGNESIUM LEVEL 2.1 MG/DL (1.8-2.4); POTASSIUM SERUM 4.1 MEQ/L (3.5-5.1); SODIUM LEVEL 143 MEQ/L (136-145)
[2022-01-09] MEDS ORDERED: HOME MED LIST COMPLETE! XX SCH (08:50)
[2022-01-09] MEDS: ASCORBIC ACID 500 MG TAB PO SCH (09:00)
[2022-01-09] MEDS: AMIODARONE 200 MG TAB (PACERONE) PO SCH (09:00)
[2022-01-09] MEDS: FUROSEMIDE 40 MG TAB PO SCH (09:00)
[2022-01-09] MEDS: DOCUSATE SODIUM 100MG CAPSULE PO SCH ×2 (09:00→20:27)
[2022-01-09] MEDS: PANTOPRAZOLE 40MG TAB (PROTONIX) PO SCH (09:00)
[2022-01-09] MEDS: FERROUS SULFATE 300MG/5ML UDC LIQUID PO SCH (09:00)
[2022-01-09] MEDS: GABAPENTIN 100 MG CAP PO SCH ×3 (09:00→20:27)
[2022-01-09] MEDS ORDERED: VANCOMYCIN 1000MG/20ML VIAL As Ordered ONE ×2 (11:42→12:42)
[2022-01-09] MEDS ORDERED: TRANEXAMIC ACID 100 MG/ML 10ML VIAL As Ordered ONE (11:42)
[2022-01-09] MEDS ORDERED: LIDOCAINE 2% 100MG/5ML SDV (FOR ANES.) As Ordered ONE (11:49)
[2022-01-09] MEDS ORDERED: SUGAMMADEX SODIUM 500 MG/5 ML VIAL (BRIDION) As Ordered ONE (11:49)
[2022-01-09] MEDS ORDERED: propofoL 200 MG/20 ML VIAL As Ordered ONE (11:49)
[2022-01-09] MEDS ORDERED: ROCURONIUM BROMIDE 50 MG/5 ML VIAL As Ordered ONE (11:49)
[2022-01-09] MEDS ORDERED: fentaNYL 100 MCG/2 ML INJECTION As Ordered ONE (11:49)
[2022-01-09] MEDS ORDERED: METOCLOPRAMIDE INJ 10MG/2ML VIAL (J2765 PER 1) As Ordered ONE (11:49)
[2022-01-09] MEDS ORDERED: ONDANSETRON 4MG/2ML VIAL As Ordered ONE ×2 (11:49→15:54)
[2022-01-09] MEDS ORDERED: ACETAMINOPHEN 1000MG 100ML IV BTL (OFIRMEV) (J0131 PER 10MG) As Ordered ONE (11:49)
[2022-01-09] MEDS ORDERED: BUPIVACAINE HCL 0.25% 10ML VIAL As Ordered ONE (12:27)
[2022-01-09] MEDS ORDERED: PHENYLEPHRINE 10MG/ML 1ML VIAL (J2370 PER 1) As Ordered ONE (12:27)
[2022-01-09] MEDS ORDERED: BUPIVACAINE LIPOSOME/PF 1.3% 20ML VIAL (13.3MG/ML)(EXPAREL) As Ordered ONE (12:27)
[2022-01-09 16:14] LABS: BASO % 0.3 % (0.0-1.0); EOS # 0.1 10^3/uL (0.0-0.5); EOS % 1.3 % (0.0-3.0); HEMATOCRIT 22.8 % (36.0-47.0); HEMOGLOBIN 7.1 g/dl (12.0-15.5); LYMPH # 0.5 10^3/uL (1.5-5.0); LYMPH % 4.7 % (24.0-44.0); MEAN CORPUSCULAR HEMOGLOBIN 29.3 pg (27.0-33.0); MEAN CORPUSCULAR HGB CONC 31.1 g/dl (32.0-36.5); MEAN CORPUSCULAR VOLUME 94.2 fl (80.0-96.0); MONO # 0.5 10^3/uL (0.0-0.8); MONO % 4.9 % (2.0-8.0); NEUTROPHILS # 9.5 10^3/uL (1.5-8.5); NEUTROPHILS % 87.9 % (36.0-66.0); PLATELET COUNT, AUTOMATED 217 10^3/uL (150-450); RED BLOOD COUNT 2.42 10^6/uL (4.00-5.40); WHITE BLOOD COUNT 10.8 10^3/uL (4.0-10.0)
[2022-01-09] MEDS ORDERED: fentaNYL 100 MCG/2 ML INJECTION IV PRN (16:20)
[2022-01-09] MEDS ORDERED: LR 1,000 ML IV SCH ×2 (16:20→16:55)
[2022-01-09] MEDS ORDERED: oxyCODONE 5MG TAB PO PRN (16:20)
[2022-01-09] MEDS ORDERED: ONDANSETRON 4MG/2ML VIAL IV PRN (16:20)
[2022-01-09] MEDS ORDERED: traMADol 50 MG TAB PO PRN (16:55)
[2022-01-09] MEDS: POLYVINYL ALCOHOL OPHTH SOLN 15 ML(LIQUITEARS) OU PRN (20:27)
[2022-01-09] MEDS: PERCOCET 5MG/325MG TAB PO PRN (21:23)
[2022-01-09] MEDS: ONDANSETRON 4MG/2ML VIAL IV PRN (21:25)
[2022-01-09] MEDS: TIMOLOL MALEATE 0.25% OPHTH SOLN 5 ML OD SCH (22:14)
[2022-01-09] MEDS: VANCOMYCIN HCL 1,000 MG, VIAL MATE ADAPTER 1 EACH in NS 250 ML IV SCH (23:40)
[2022-01-10] VITALS (18 sets, daily range): BP systolic 84–111; BP diastolic 42–62
[2022-01-10] MEDS ORDERED: MORPHINE 4 MG/ML 1ML VIAL/SYRINGE IV PRN (00:45)
[2022-01-10] MEDS ORDERED: MORPHINE 2 MG/ML 1ML VIAL IV PRN (01:00)
[2022-01-10 07:52] LABS: BASO % 0.1 % (0.0-1.0); HEMATOCRIT 26.1 % (36.0-47.0); HEMOGLOBIN 8.5 g/dl (12.0-15.5); LYMPH # 0.8 10^3/uL (1.5-5.0); LYMPH % 6.6 % (24.0-44.0); MEAN CORPUSCULAR HEMOGLOBIN 29.2 pg (27.0-33.0); MEAN CORPUSCULAR HGB CONC 32.6 g/dl (32.0-36.5); MEAN CORPUSCULAR VOLUME 89.7 fl (80.0-96.0); MONO # 0.9 10^3/uL (0.0-0.8); NEUTROPHILS # 9.6 10^3/uL (1.5-8.5); NEUTROPHILS % 84.7 % (36.0-66.0); PLATELET COUNT, AUTOMATED 220 10^3/uL (150-450); RED BLOOD COUNT 2.91 10^6/uL (4.00-5.40); WHITE BLOOD COUNT 11.4 10^3/uL (4.0-10.0)
[2022-01-10] MEDS: DOCUSATE SODIUM 100MG CAPSULE PO SCH ×2 (08:04→20:24)
[2022-01-10] MEDS: ASCORBIC ACID 500 MG TAB PO SCH (08:04)
[2022-01-10] MEDS: AMIODARONE 200 MG TAB (PACERONE) PO SCH (08:04)
[2022-01-10] MEDS: PANTOPRAZOLE 40MG TAB (PROTONIX) PO SCH (08:04)
[2022-01-10] MEDS: FERROUS SULFATE 300MG/5ML UDC LIQUID PO SCH (08:04)
[2022-01-10] MEDS: FUROSEMIDE 40 MG TAB PO SCH (08:05)
[2022-01-10] MEDS: GABAPENTIN 100 MG CAP PO SCH ×3 (08:05→20:24)
[2022-01-10] MEDS: PERCOCET 5MG/325MG TAB PO PRN (08:05)
[2022-01-10] MEDS: TIMOLOL MALEATE 0.25% OPHTH SOLN 5 ML OD SCH (08:06)
[2022-01-10 08:16] LABS: BLOOD UREA NITROGEN 18 MG/DL (7-18); CALCIUM LEVEL 7.7 MG/DL (8.8-10.2); CARBON DIOXIDE LEVEL 29 MEQ/L (21-32); CHLORIDE LEVEL 110 MEQ/L (98-107); CREATININE FOR GFR 0.68 MG/DL (0.55-1.30); GLOMERULAR FILTRATION RATE > 60.0 (>39); GLUCOSE, FASTING 110 MG/DL (70-100); POTASSIUM SERUM 4.2 MEQ/L (3.5-5.1); SODIUM LEVEL 144 MEQ/L (136-145)
[2022-01-10 12:08] LABS: HEMATOCRIT 24.6 % (36.0-47.0); HEMOGLOBIN 8.2 g/dl (12.0-15.5)
[2022-01-10] MEDS: VANCOMYCIN HCL 1,000 MG, VIAL MATE ADAPTER 1 EACH in NS 250 ML IV SCH (12:41)
[2022-01-10] MEDS ORDERED: NS 1,000 ML IV ONE (14:05)
[2022-01-10 14:27] LABS: BASO % 0.2 % (0.0-1.0); EOS # 0.1 10^3/uL (0.0-0.5); EOS % 0.4 % (0.0-3.0); HEMATOCRIT 24.8 % (36.0-47.0); LYMPH # 0.9 10^3/uL (1.5-5.0); LYMPH % 8.1 % (24.0-44.0); MEAN CORPUSCULAR HGB CONC 32.3 g/dl (32.0-36.5); MEAN CORPUSCULAR VOLUME 89.9 fl (80.0-96.0); MONO # 1.1 10^3/uL (0.0-0.8); NEUTROPHILS # 9.2 10^3/uL (1.5-8.5); NEUTROPHILS % 80.7 % (36.0-66.0); PLATELET COUNT, AUTOMATED 231 10^3/uL (150-450); RED BLOOD COUNT 2.76 10^6/uL (4.00-5.40); WHITE BLOOD COUNT 11.4 10^3/uL (4.0-10.0)
[2022-01-10 15:12] LABS: APPEARANCE, URINE HAZY (CLEAR); BACTERIA, URINE AUTO 1+ (NEGATIVE); BILIRUBIN, URINE AUTO NEGATIVE (NEGATIVE); BLOOD, URINE BLOOD NEGATIVE (NEGATIVE); COLOR, URINE YELLOW (YELLOW); GLUCOSE, URINE (UA) AUTO NEGATIVE (NEGATIVE); GRANULAR CAST, URINE AUTO 7 /LPF; KETONE, URINE AUTO NEGATIVE (NEGATIVE); LEUKOCYTE ESTERASE, URINE AUTO NEGATIVE (NEGATIVE); MUCUS, URINE SMALL (NEGATIVE); NITRITE, URINE AUTO NEGATIVE (NEGATIVE); PROTEIN, URINE AUTO NEGATIVE (NEGATIVE); RBC, URINE AUTO 1 /HPF (0-3); SPECIFIC GRAVITY URINE AUTO 1.013 (1.002-1.035); SQUAMOUS EPITHELIAL CELL UR AU 0 /HPF (0-6); UROBILINOGEN, URINE AUTO 0.2 mg/dL (0.0-2.0); WBC, URINE AUTO 7 /HPF (0-3)
[2022-01-10] MEDS: POLYVINYL ALCOHOL OPHTH SOLN 15 ML(LIQUITEARS) OU PRN (15:44)
[2022-01-10] MEDS: BACTRIM 160MG/800MG DS TAB PO SCH (20:24)
[2022-01-10 21:23] LABS: HEMATOCRIT 27.7 % (36.0-47.0); HEMOGLOBIN 9.3 g/dl (12.0-15.5)
[2022-01-10] MEDS ORDERED: NS 500 ML IV ONE (22:10)
[2022-01-11] MEDS ORDERED: NS 500 ML IV ONE
[2022-01-11 00:14] LABS: BASO % 0.3 % (0.0-1.0); EOS # 0.2 10^3/uL (0.0-0.5); EOS % 1.8 % (0.0-3.0); HEMATOCRIT 27.1 % (36.0-47.0); HEMOGLOBIN 9.1 g/dl (12.0-15.5); LYMPH # 1.1 10^3/uL (1.5-5.0); LYMPH % 10.5 % (24.0-44.0); MEAN CORPUSCULAR HEMOGLOBIN 29.3 pg (27.0-33.0); MEAN CORPUSCULAR HGB CONC 33.6 g/dl (32.0-36.5); MEAN CORPUSCULAR VOLUME 87.1 fl (80.0-96.0); MONO % 9.4 % (2.0-8.0); NEUTROPHILS # 8.3 10^3/uL (1.5-8.5); NEUTROPHILS % 77.6 % (36.0-66.0); PLATELET COUNT, AUTOMATED 182 10^3/uL (150-450); RED BLOOD COUNT 3.11 10^6/uL (4.00-5.40); WHITE BLOOD COUNT 10.6 10^3/uL (4.0-10.0)
[2022-01-11] MEDS ORDERED: MIDODRINE 5 MG TAB PO ONE ×2 (01:00)
[2022-01-11 02:00] VITALS: BP 106/58
[2022-01-11] MEDS: PERCOCET 5MG/325MG TAB PO PRN ×4 (04:20→21:03)
[2022-01-11 06:00] VITALS: BP 103/58
[2022-01-11 08:47] LABS: BASO % 0.3 % (0.0-1.0); EOS # 0.4 10^3/uL (0.0-0.5); EOS % 3.3 % (0.0-3.0); HEMATOCRIT 28.4 % (36.0-47.0); HEMOGLOBIN 9.4 g/dl (12.0-15.5); LYMPH % 8.4 % (24.0-44.0); MEAN CORPUSCULAR HEMOGLOBIN 29.2 pg (27.0-33.0); MEAN CORPUSCULAR HGB CONC 33.1 g/dl (32.0-36.5); MEAN CORPUSCULAR VOLUME 88.2 fl (80.0-96.0); MONO # 1.1 10^3/uL (0.0-0.8); MONO % 9.2 % (2.0-8.0); NEUTROPHILS % 78.4 % (36.0-66.0); PLATELET COUNT, AUTOMATED 200 10^3/uL (150-450); RED BLOOD COUNT 3.22 10^6/uL (4.00-5.40); WHITE BLOOD COUNT 11.5 10^3/uL (4.0-10.0)
[2022-01-11 09:18] LABS: BLOOD UREA NITROGEN 20 MG/DL (7-18); CALCIUM LEVEL 7.7 MG/DL (8.8-10.2); CARBON DIOXIDE LEVEL 28 MEQ/L (21-32); CHLORIDE LEVEL 114 MEQ/L (98-107); CREATININE FOR GFR 0.83 MG/DL (0.55-1.30); GLOMERULAR FILTRATION RATE > 60.0 (>39); GLUCOSE, FASTING 92 MG/DL (70-100); MAGNESIUM LEVEL 2.1 MG/DL (1.8-2.4); POTASSIUM SERUM 3.8 MEQ/L (3.5-5.1); SODIUM LEVEL 145 MEQ/L (136-145)
[2022-01-11] MEDS: MIDODRINE 5 MG TAB PO SCH ×3 (09:39→16:01)
[2022-01-11] MEDS: GABAPENTIN 100 MG CAP PO SCH ×3 (09:40→20:58)
[2022-01-11] MEDS: ASCORBIC ACID 500 MG TAB PO SCH (09:41)
[2022-01-11] MEDS: FERROUS SULFATE 325MG TAB PO SCH (09:41)
[2022-01-11] MEDS: BACTRIM 160MG/800MG DS TAB PO SCH ×2 (09:41→20:58)
[2022-01-11] MEDS: FUROSEMIDE 40 MG TAB PO SCH (09:41)
[2022-01-11] MEDS: AMIODARONE 200 MG TAB (PACERONE) PO SCH (09:41)
[2022-01-11] MEDS: DOCUSATE SODIUM 100MG CAPSULE PO SCH ×2 (09:42→20:58)
[2022-01-11] MEDS: PANTOPRAZOLE 40MG TAB (PROTONIX) PO SCH (09:42)
[2022-01-11] MEDS: TIMOLOL MALEATE 0.25% OPHTH SOLN 5 ML OD SCH ×2 (09:52→20:59)
[2022-01-11] MEDS: APIXABAN 5 MG TAB (ELIQUIS) PO SCH ×2 (11:19→20:58)
[2022-01-11 14:06] VITALS: BP 100/59
[2022-01-11 20:28] VITALS: BP 127/64
[2022-01-12 05:13] VITALS: BP 124/55
[2022-01-12 05:14] LABS: BASO # 0.1 10^3/uL (0.0-0.2); BASO % 0.4 % (0.0-1.0); EOS # 0.5 10^3/uL (0.0-0.5); EOS % 3.9 % (0.0-3.0); HEMATOCRIT 30.3 % (36.0-47.0); HEMOGLOBIN 9.7 g/dl (12.0-15.5); LYMPH # 0.8 10^3/uL (1.5-5.0); LYMPH % 6.8 % (24.0-44.0); MEAN CORPUSCULAR VOLUME 90.4 fl (80.0-96.0); MONO # 1.1 10^3/uL (0.0-0.8); MONO % 8.8 % (2.0-8.0); NEUTROPHILS # 9.5 10^3/uL (1.5-8.5); NEUTROPHILS % 79.5 % (36.0-66.0); PLATELET COUNT, AUTOMATED 213 10^3/uL (150-450); RED BLOOD COUNT 3.35 10^6/uL (4.00-5.40)
[2022-01-12 05:37] LABS: BLOOD UREA NITROGEN 20 MG/DL (7-18); CALCIUM LEVEL 7.6 MG/DL (8.8-10.2); CARBON DIOXIDE LEVEL 30 MEQ/L (21-32); CHLORIDE LEVEL 110 MEQ/L (98-107); CREATININE FOR GFR 0.76 MG/DL (0.55-1.30); GLOMERULAR FILTRATION RATE > 60.0 (>39); GLUCOSE, FASTING 90 MG/DL (70-100); POTASSIUM SERUM 4.3 MEQ/L (3.5-5.1); SODIUM LEVEL 141 MEQ/L (136-145)
[2022-01-12] MEDS: BACTRIM 160MG/800MG DS TAB PO SCH ×2 (08:38→21:29)
[2022-01-12] MEDS: PANTOPRAZOLE 40MG TAB (PROTONIX) PO SCH (08:38)
[2022-01-12] MEDS: MIDODRINE 5 MG TAB PO SCH ×3 (08:38→15:06)
[2022-01-12] MEDS: DOCUSATE SODIUM 100MG CAPSULE PO SCH ×2 (08:38→21:29)
[2022-01-12] MEDS: FUROSEMIDE 40 MG TAB PO SCH (08:38)
[2022-01-12] MEDS: GABAPENTIN 100 MG CAP PO SCH ×3 (08:38→21:29)
[2022-01-12] MEDS: FERROUS SULFATE 325MG TAB PO SCH (08:38)
[2022-01-12] MEDS: APIXABAN 5 MG TAB (ELIQUIS) PO SCH ×2 (08:39→21:29)
[2022-01-12] MEDS: AMIODARONE 200 MG TAB (PACERONE) PO SCH (08:39)
[2022-01-12] MEDS: ASCORBIC ACID 500 MG TAB PO SCH (08:39)
[2022-01-12] MEDS: TIMOLOL MALEATE 0.25% OPHTH SOLN 5 ML OD SCH ×2 (08:49→21:29)
[2022-01-12] MEDS: BACLOFEN 5MG PER 1/2 TABLET PO SCH ×3 (09:05→21:29)
[2022-01-12 14:00] VITALS: BP 110/59
[2022-01-13 06:35] VITALS: BP 111/52
[2022-01-13] MEDS ORDERED: SENOKOT S TAB PO PRN (07:30)
[2022-01-13] MEDS ORDERED: MIRALAX *UNIT DOSE* 17GM PACKET PO PRN (07:30)
[2022-01-13] MEDS ORDERED: BISACODYL 10 MG SUPP PR ONE (07:30)
[2022-01-13] MEDS ORDERED: BISACODYL 10 MG SUPP PR PRN (07:30)
[2022-01-13] MEDS ORDERED: MOM 30ML SUSPENSION UDC PO PRN (07:30)
[2022-01-13] MEDS: PANTOPRAZOLE 40MG TAB (PROTONIX) PO SCH (08:42)
[2022-01-13] MEDS: ASCORBIC ACID 500 MG TAB PO SCH ×2 (09:00→09:37)
[2022-01-13] MEDS: FUROSEMIDE 40MG/4ML VIAL (J1940) IV SCH ×2 (09:00→16:15)
[2022-01-13] MEDS: BACLOFEN 5MG PER 1/2 TABLET PO SCH ×3 (09:36→20:25)
[2022-01-13] MEDS: GABAPENTIN 100 MG CAP PO SCH ×3 (09:36→20:25)
[2022-01-13] MEDS: BACTRIM 160MG/800MG DS TAB PO SCH ×2 (09:36→20:25)
[2022-01-13 09:37] LABS: BASO % 0.3 % (0.0-1.0); EOS # 0.4 10^3/uL (0.0-0.5); EOS % 3.3 % (0.0-3.0); HEMATOCRIT 31.4 % (36.0-47.0); HEMOGLOBIN 10.1 g/dl (12.0-15.5); LYMPH # 0.7 10^3/uL (1.5-5.0); LYMPH % 6.3 % (24.0-44.0); MEAN CORPUSCULAR HEMOGLOBIN 28.9 pg (27.0-33.0); MEAN CORPUSCULAR HGB CONC 32.2 g/dl (32.0-36.5); MEAN CORPUSCULAR VOLUME 89.7 fl (80.0-96.0); MONO % 9.1 % (2.0-8.0); NEUTROPHILS # 8.6 10^3/uL (1.5-8.5); NEUTROPHILS % 80.6 % (36.0-66.0); PLATELET COUNT, AUTOMATED 239 10^3/uL (150-450); WHITE BLOOD COUNT 10.7 10^3/uL (4.0-10.0)
[2022-01-13] MEDS: FERROUS SULFATE 325MG TAB PO SCH (09:37)
[2022-01-13] MEDS: APIXABAN 5 MG TAB (ELIQUIS) PO SCH ×2 (09:37→20:25)
[2022-01-13] MEDS: MIDODRINE 5 MG TAB PO SCH ×3 (09:37→16:15)
[2022-01-13] MEDS: TIMOLOL MALEATE 0.25% OPHTH SOLN 5 ML OD SCH ×2 (09:37→20:28)
[2022-01-13] MEDS: AMIODARONE 200 MG TAB (PACERONE) PO SCH (09:37)
[2022-01-13 09:39] VITALS: BP 109/58
[2022-01-13 10:09] LABS: BLOOD UREA NITROGEN 15 MG/DL (7-18); CALCIUM LEVEL 8.4 MG/DL (8.8-10.2); CARBON DIOXIDE LEVEL 31 MEQ/L (21-32); CHLORIDE LEVEL 108 MEQ/L (98-107); CREATININE FOR GFR 0.64 MG/DL (0.55-1.30); GLOMERULAR FILTRATION RATE > 60.0 (>39); GLUCOSE, FASTING 94 MG/DL (70-100); NT-PRO BNP 1733 PG/ML (<450); POTASSIUM SERUM 3.9 MEQ/L (3.5-5.1); SODIUM LEVEL 143 MEQ/L (136-145)
[2022-01-13 14:00] VITALS: BP 118/65
[2022-01-13] MEDS: PERCOCET 5MG/325MG TAB PO PRN (20:40)
[2022-01-14 06:16] VITALS: BP 98/50
[2022-01-14] MEDS: ONDANSETRON 4MG/2ML VIAL IV PRN (08:46)
[2022-01-14] MEDS: TIMOLOL MALEATE 0.25% OPHTH SOLN 5 ML OD SCH (08:51)
[2022-01-14] MEDS: AMIODARONE 200 MG TAB (PACERONE) PO SCH (08:57)
[2022-01-14] MEDS: PANTOPRAZOLE 40MG TAB (PROTONIX) PO SCH (08:57)
[2022-01-14] MEDS: MIDODRINE 5 MG TAB PO SCH ×3 (08:57→16:07)
[2022-01-14] MEDS: BACLOFEN 5MG PER 1/2 TABLET PO SCH ×2 (08:57→16:07)
[2022-01-14] MEDS: ASCORBIC ACID 500 MG TAB PO SCH (08:57)
[2022-01-14] MEDS: GABAPENTIN 100 MG CAP PO SCH ×2 (08:57→16:07)
[2022-01-14] MEDS: APIXABAN 5 MG TAB (ELIQUIS) PO SCH ×2 (08:57→21:14)
[2022-01-14] MEDS: FUROSEMIDE 40MG/4ML VIAL (J1940) IV SCH ×2 (08:58→16:08)
[2022-01-14] MEDS: BACTRIM 160MG/800MG DS TAB PO SCH ×2 (08:58→21:14)
[2022-01-14] MEDS: FERROUS SULFATE 325MG TAB PO SCH (08:58)
[2022-01-14 08:59] VITALS: BP 101/54
[2022-01-14] MEDS: PERCOCET 5MG/325MG TAB PO PRN ×2 (09:19→16:08)
[2022-01-14 12:05] VITALS: BP 103/55
[2022-01-14 13:55] VITALS: BP 110/55
[2022-01-14 16:08] VITALS: BP 110/56
[2022-01-14] MEDS ORDERED: BACLOFEN 5MG PER 1/2 TABLET PO PRN (19:00)
[2022-01-15 06:00] VITALS: BP 131/63
[2022-01-15] MEDS: ONDANSETRON 4MG/2ML VIAL IV PRN ×3 (06:54→21:36)
[2022-01-15 07:01] LABS: BASO % 0.4 % (0.0-1.0); EOS # 0.3 10^3/uL (0.0-0.5); EOS % 4.7 % (0.0-3.0); HEMATOCRIT 28.5 % (36.0-47.0); HEMOGLOBIN 9.2 g/dl (12.0-15.5); LYMPH # 0.6 10^3/uL (1.5-5.0); LYMPH % 7.9 % (24.0-44.0); MEAN CORPUSCULAR HEMOGLOBIN 29.4 pg (27.0-33.0); MEAN CORPUSCULAR HGB CONC 32.3 g/dl (32.0-36.5); MEAN CORPUSCULAR VOLUME 91.1 fl (80.0-96.0); MONO % 13.4 % (2.0-8.0); NEUTROPHILS # 5.3 10^3/uL (1.5-8.5); NEUTROPHILS % 73.2 % (36.0-66.0); PLATELET COUNT, AUTOMATED 285 10^3/uL (150-450); RED BLOOD COUNT 3.13 10^6/uL (4.00-5.40); WHITE BLOOD COUNT 7.3 10^3/uL (4.0-10.0)
[2022-01-15 07:15] LABS: BLOOD UREA NITROGEN 17 MG/DL (7-18); CALCIUM LEVEL 7.7 MG/DL (8.8-10.2); CARBON DIOXIDE LEVEL 31 MEQ/L (21-32); CHLORIDE LEVEL 104 MEQ/L (98-107); CREATININE FOR GFR 0.77 MG/DL (0.55-1.30); GLOMERULAR FILTRATION RATE > 60.0 (>39); GLUCOSE, FASTING 75 MG/DL (70-100); POTASSIUM SERUM 3.5 MEQ/L (3.5-5.1); SODIUM LEVEL 141 MEQ/L (136-145)
[2022-01-15 07:19] LABS: NT-PRO BNP 841 PG/ML (<450)
[2022-01-15 08:37] LABS: LIPASE 67 U/L (73-393)
[2022-01-15] MEDS: ASCORBIC ACID 500 MG TAB PO SCH (09:39)
[2022-01-15] MEDS: APIXABAN 5 MG TAB (ELIQUIS) PO SCH ×2 (09:39→21:37)
[2022-01-15] MEDS: PANTOPRAZOLE 40MG TAB (PROTONIX) PO SCH (09:39)
[2022-01-15 09:40] VITALS: BP 105/57
[2022-01-15] MEDS: AMIODARONE 200 MG TAB (PACERONE) PO SCH (09:40)
[2022-01-15] MEDS: BACTRIM 160MG/800MG DS TAB PO SCH ×2 (09:40→21:36)
[2022-01-15] MEDS: FERROUS SULFATE 325MG TAB PO SCH (09:40)
[2022-01-15] MEDS: MIDODRINE 5 MG TAB PO SCH ×3 (09:40→17:02)
[2022-01-15] MEDS: FUROSEMIDE 40MG/4ML VIAL (J1940) IV SCH (09:41)
[2022-01-15 12:28] VITALS: BP 112/96
[2022-01-15 14:00] VITALS: BP 126/61
[2022-01-15] MEDS: GABAPENTIN 100 MG CAP PO SCH ×2 (17:03→21:36)
[2022-01-15 17:04] VITALS: BP 109/59
[2022-01-15 21:07] VITALS: BP 113/59
[2022-01-16 06:00] VITALS: BP 103/56
[2022-01-16 06:37] LABS: BASO % 0.4 % (0.0-1.0); EOS # 0.2 10^3/uL (0.0-0.5); EOS % 2.3 % (0.0-3.0); HEMATOCRIT 28.5 % (36.0-47.0); HEMOGLOBIN 9.2 g/dl (12.0-15.5); LYMPH # 0.6 10^3/uL (1.5-5.0); MEAN CORPUSCULAR HEMOGLOBIN 29.3 pg (27.0-33.0); MEAN CORPUSCULAR HGB CONC 32.3 g/dl (32.0-36.5); MEAN CORPUSCULAR VOLUME 90.8 fl (80.0-96.0); MONO # 0.9 10^3/uL (0.0-0.8); MONO % 13.3 % (2.0-8.0); NEUTROPHILS # 5.2 10^3/uL (1.5-8.5); NEUTROPHILS % 75.4 % (36.0-66.0); PLATELET COUNT, AUTOMATED 302 10^3/uL (150-450); RED BLOOD COUNT 3.14 10^6/uL (4.00-5.40); WHITE BLOOD COUNT 6.9 10^3/uL (4.0-10.0)
[2022-01-16 07:04] LABS: BLOOD UREA NITROGEN 15 MG/DL (7-18); CARBON DIOXIDE LEVEL 25 MEQ/L (21-32); CHLORIDE LEVEL 107 MEQ/L (98-107); CREATININE FOR GFR 0.66 MG/DL (0.55-1.30); GLOMERULAR FILTRATION RATE > 60.0 (>39); GLUCOSE, FASTING 81 MG/DL (70-100); POTASSIUM SERUM 3.7 MEQ/L (3.5-5.1); SODIUM LEVEL 142 MEQ/L (136-145)
[2022-01-16] MEDS: MIDODRINE 5 MG TAB PO SCH ×3 (08:42→14:56)
[2022-01-16] MEDS: GABAPENTIN 100 MG CAP PO SCH ×3 (08:42→21:24)
[2022-01-16] MEDS: APIXABAN 5 MG TAB (ELIQUIS) PO SCH ×2 (08:43→21:25)
[2022-01-16] MEDS: AMIODARONE 200 MG TAB (PACERONE) PO SCH (08:43)
[2022-01-16] MEDS: BACTRIM 160MG/800MG DS TAB PO SCH ×2 (08:43→21:24)
[2022-01-16] MEDS: ONDANSETRON 4MG/2ML VIAL IV SCH ×3 (08:44→21:24)
[2022-01-16] MEDS: ASCORBIC ACID 500 MG TAB PO SCH (08:45)
[2022-01-16] MEDS: FERROUS SULFATE 325MG TAB PO SCH (08:45)
[2022-01-16] MEDS ORDERED: FUROSEMIDE 40MG/4ML VIAL (J1940) IV SCH (09:00)
[2022-01-16] MEDS ORDERED: MIRALAX *UNIT DOSE* 17GM PACKET PO SCH (09:00)
[2022-01-16] MEDS: SENOKOT S TAB PO SCH ×2 (14:52→21:25)
[2022-01-16 22:00] VITALS: BP 107/59
[2022-01-16] MEDS: PERCOCET 5MG/325MG TAB PO PRN (23:23)
[2022-01-17] MEDS: ONDANSETRON 4MG/2ML VIAL IV SCH ×4 (02:00→20:22)
[2022-01-17 06:00] VITALS: BP 102/52
[2022-01-17 06:36] LABS: BASO % 0.7 % (0.0-1.0); EOS # 0.4 10^3/uL (0.0-0.5); EOS % 6.4 % (0.0-3.0); HEMATOCRIT 29.7 % (36.0-47.0); HEMOGLOBIN 9.6 g/dl (12.0-15.5); LYMPH # 0.9 10^3/uL (1.5-5.0); LYMPH % 16.8 % (24.0-44.0); MEAN CORPUSCULAR HGB CONC 32.3 g/dl (32.0-36.5); MEAN CORPUSCULAR VOLUME 89.7 fl (80.0-96.0); MONO # 0.8 10^3/uL (0.0-0.8); MONO % 14.4 % (2.0-8.0); NEUTROPHILS # 3.3 10^3/uL (1.5-8.5); NEUTROPHILS % 61.3 % (36.0-66.0); PLATELET COUNT, AUTOMATED 358 10^3/uL (150-450); RED BLOOD COUNT 3.31 10^6/uL (4.00-5.40); WHITE BLOOD COUNT 5.4 10^3/uL (4.0-10.0)
[2022-01-17 06:51] LABS: BLOOD UREA NITROGEN 19 MG/DL (7-18); CALCIUM LEVEL 7.9 MG/DL (8.8-10.2); CARBON DIOXIDE LEVEL 34 MEQ/L (21-32); CHLORIDE LEVEL 103 MEQ/L (98-107); CREATININE FOR GFR 0.79 MG/DL (0.55-1.30); GLOMERULAR FILTRATION RATE > 60.0 (>39); GLUCOSE, FASTING 82 MG/DL (70-100); POTASSIUM SERUM 3.4 MEQ/L (3.5-5.1); SODIUM LEVEL 140 MEQ/L (136-145)
[2022-01-17] MEDS ORDERED: POTASSIUM CHLORIDE 10MEQ SR TABLET PO ONE (07:40)
[2022-01-17] MEDS: BACTRIM 160MG/800MG DS TAB PO SCH ×2 (08:20→20:21)
[2022-01-17] MEDS: MIDODRINE 5 MG TAB PO SCH ×3 (08:20→14:53)
[2022-01-17] MEDS: SENOKOT S TAB PO SCH ×2 (08:20→20:22)
[2022-01-17] MEDS: GABAPENTIN 100 MG CAP PO SCH ×3 (08:20→20:21)
[2022-01-17] MEDS: ASCORBIC ACID 500 MG TAB PO SCH (08:21)
[2022-01-17] MEDS: BISACODYL 10 MG SUPP PR SCH (08:21)
[2022-01-17] MEDS: FERROUS SULFATE 325MG TAB PO SCH (08:21)
[2022-01-17] MEDS: AMIODARONE 200 MG TAB (PACERONE) PO SCH (08:21)
[2022-01-17] MEDS: APIXABAN 5 MG TAB (ELIQUIS) PO SCH ×2 (08:21→20:21)
[2022-01-17 22:00] VITALS: BP 110/54
[2022-01-18] MEDS: ONDANSETRON 4MG/2ML VIAL IV SCH ×2 (02:00→08:17)
[2022-01-18] MEDS: PERCOCET 5MG/325MG TAB PO PRN (03:12)
[2022-01-18 06:00] VITALS: BP 107/54
[2022-01-18 07:05] LABS: BLOOD UREA NITROGEN 15 MG/DL (7-18); CALCIUM LEVEL 8.1 MG/DL (8.8-10.2); CARBON DIOXIDE LEVEL 31 MEQ/L (21-32); CHLORIDE LEVEL 104 MEQ/L (98-107); CREATININE FOR GFR 0.78 MG/DL (0.55-1.30); GLOMERULAR FILTRATION RATE > 60.0 (>39); GLUCOSE, FASTING 84 MG/DL (70-100); POTASSIUM SERUM 3.9 MEQ/L (3.5-5.1); SODIUM LEVEL 141 MEQ/L (136-145)
[2022-01-18] MEDS: SENOKOT S TAB PO SCH ×2 (08:17→20:49)
[2022-01-18] MEDS: APIXABAN 5 MG TAB (ELIQUIS) PO SCH ×2 (08:18→20:49)
[2022-01-18] MEDS: FERROUS SULFATE 325MG TAB PO SCH ×2 (08:18→08:32)
[2022-01-18] MEDS: GABAPENTIN 100 MG CAP PO SCH ×3 (08:18→20:49)
[2022-01-18] MEDS: BISACODYL 10 MG SUPP PR SCH (08:18)
[2022-01-18] MEDS: AMIODARONE 200 MG TAB (PACERONE) PO SCH (08:18)
[2022-01-18] MEDS: ASCORBIC ACID 500 MG TAB PO SCH ×2 (08:18→08:32)
[2022-01-18] MEDS: MIDODRINE 5 MG TAB PO SCH ×3 (08:18→16:12)
[2022-01-18] MEDS: BACTRIM 160MG/800MG DS TAB PO SCH ×2 (08:19→20:49)
[2022-01-18] MEDS ORDERED: MIRALAX *UNIT DOSE* 17GM PACKET PO PRN (10:35)
[2022-01-18] MEDS: ONDANSETRON 4MG/2ML VIAL IV PRN ×2 (16:12→22:58)
[2022-01-19] MEDS: PERCOCET 5MG/325MG TAB PO PRN (04:42)
[2022-01-19 06:00] VITALS: BP 111/59
[2022-01-19 06:21] LABS: BASO % 0.5 % (0.0-1.0); EOS # 0.4 10^3/uL (0.0-0.5); EOS % 6.5 % (0.0-3.0); HEMATOCRIT 29.1 % (36.0-47.0); HEMOGLOBIN 9.4 g/dl (12.0-15.5); LYMPH # 0.9 10^3/uL (1.5-5.0); LYMPH % 14.4 % (24.0-44.0); MEAN CORPUSCULAR HEMOGLOBIN 29.4 pg (27.0-33.0); MEAN CORPUSCULAR HGB CONC 32.3 g/dl (32.0-36.5); MEAN CORPUSCULAR VOLUME 90.9 fl (80.0-96.0); MONO # 0.8 10^3/uL (0.0-0.8); MONO % 12.1 % (2.0-8.0); NEUTROPHILS # 4.2 10^3/uL (1.5-8.5); NEUTROPHILS % 65.9 % (36.0-66.0); PLATELET COUNT, AUTOMATED 388 10^3/uL (150-450); WHITE BLOOD COUNT 6.3 10^3/uL (4.0-10.0)
[2022-01-19 06:39] LABS: BLOOD UREA NITROGEN 14 MG/DL (7-18); CALCIUM LEVEL 8.2 MG/DL (8.8-10.2); CARBON DIOXIDE LEVEL 31 MEQ/L (21-32); CHLORIDE LEVEL 107 MEQ/L (98-107); CREATININE FOR GFR 0.82 MG/DL (0.55-1.30); GLOMERULAR FILTRATION RATE > 60.0 (>39); GLUCOSE, FASTING 92 MG/DL (70-100); MAGNESIUM LEVEL 2.2 MG/DL (1.8-2.4); POTASSIUM SERUM 4.5 MEQ/L (3.5-5.1); SODIUM LEVEL 142 MEQ/L (136-145)
[2022-01-19 07:30] VITALS: BP 100/49
[2022-01-19] MEDS ORDERED: MIDO5TA PO (08:29)
[2022-01-19] MEDS ORDERED: ELIQ5TAB PO (08:29)
[2022-01-19] MEDS ORDERED: BISA10SU PR (08:29)
[2022-01-19] MEDS ORDERED: MIRA1POW3 PO (08:29)
[2022-01-19] MEDS ORDERED: FERR1TAB8 PO (08:29)
[2022-01-19] MEDS ORDERED: SENN-52 PO (08:31)
[2022-01-19] MEDS ORDERED: BACTDSTA PO (08:31)
[2022-01-19] MEDS ORDERED: APIXABAN 2.5 MG TAB (ELIQUIS) PO SCH ×2 (09:00→10:00)
[2022-01-19] MEDS: FERROUS SULFATE 325MG TAB PO SCH ×2 (09:00→09:57)
[2022-01-19] MEDS: ASCORBIC ACID 500 MG TAB PO SCH ×2 (09:00→09:58)
[2022-01-19] MEDS: MIDODRINE 5 MG TAB PO SCH (09:38)
[2022-01-19] MEDS: GABAPENTIN 100 MG CAP PO SCH (09:56)
[2022-01-19] MEDS: SENOKOT S TAB PO SCH (09:57)
[2022-01-19] MEDS: AMIODARONE 200 MG TAB (PACERONE) PO SCH (09:58)
[2022-01-19] MEDS: BISACODYL 10 MG SUPP PR SCH (09:58)
[2022-01-19] MEDS ORDERED: PILL CUTTER 1 EACH XX PRN (10:00)
[2022-01-19] MEDS: BACTRIM 160MG/800MG DS TAB PO SCH (10:10)
== END 2022-01-19 12:00 | DRG 481 ==
LOC: M MS5PR 18:15
PROVIDERS: ADMIT Internal Medicine; ATTEND Internal Medicine Nephrology
PROC: 30233N1 Transfusion of Nonautologous Red Blood Cells into Peripheral Vein, Percutaneous Approach (ICD-10-PCS; 2022-01-09)
PROC: 0QSC04Z Reposition Left Lower Femur with Internal Fixation Device, Open Approach (ICD-10-PCS; principal; 2022-01-09 08:00)
DX: M97.8XXA Periprosthetic fracture around other internal prosthetic joint, initial encounter (principal); G82.20 Paraplegia, unspecified; J98.11 Atelectasis; J90 Pleural effusion, not elsewhere classified; D62 Acute posthemorrhagic anemia; I48.0 Paroxysmal atrial fibrillation; G62.9 Polyneuropathy, unspecified; M19.90 Unspecified osteoarthritis, unspecified site; W18.49XA Other slipping, tripping and stumbling without falling, initial encounter; Y92.239 Unspecified place in hospital as the place of occurrence of the external cause; Y99.8 Other external cause status; Z66 Do not resuscitate; Y93.9 Activity, unspecified; H57.11 Ocular pain, right eye; S14.109S Unspecified injury at unspecified level of cervical spinal cord, sequela; H40.9 Unspecified glaucoma; I95.89 Other hypotension; K21.9 Gastro-esophageal reflux disease without esophagitis; F43.9 Reaction to severe stress, unspecified; R32 Unspecified urinary incontinence; M62.838 Other muscle spasm; R09.02 Hypoxemia; K59.00 Constipation, unspecified; M85.852 Other specified disorders of bone density and structure, left thigh; R11.0 Nausea; R10.9 Unspecified abdominal pain; N28.89 Other specified disorders of kidney and ureter; Z79.01 Long term (current) use of anticoagulants; Z96.652 Presence of left artificial knee joint; Z90.49 Acquired absence of other specified parts of digestive tract; Z79.899 Other long term (current) drug therapy; Z88.0 Allergy status to penicillin; Z88.8 Allergy status to other drugs, medicaments and biological substances

== ENCOUNTER → 2022-01-26 | Outpatient (REF) ==
[~2022-01-26] MED LIST changes: +ACET-683 PO; +ASCO50TA PO; +BACTDSTA PO; +BISA10SU PR; +FERR1TAB8 PO; +FURO40TA2 PO; +MIRA1POW3 PO; +OXYC-517 PO; +PANT40TA29 PO; +SENN-52 PO; +Zinc Oxide/Petrolatum,White TOP
[2022-01-26 11:39] LABS: HEMATOCRIT 34.8 % (36.0-47.0); HEMOGLOBIN 10.6 g/dl (12.0-15.5); MEAN CORPUSCULAR HEMOGLOBIN 28.2 pg (27.0-33.0); MEAN CORPUSCULAR HGB CONC 30.5 g/dl (32.0-36.5); MEAN CORPUSCULAR VOLUME 92.6 fl (80.0-96.0); PLATELET COUNT, AUTOMATED 449 10^3/uL (150-450); RED BLOOD COUNT 3.76 10^6/uL (4.00-5.40); WHITE BLOOD COUNT 6.8 10^3/uL (4.0-10.0)
== END ==
LOC: SKLAB3 10:01
PROVIDERS: ATTEND Internal Medicine
DX: D64.9 Anemia, unspecified (principal)

== ENCOUNTER → 2022-01-30 | Outpatient (REF) ==
[2022-01-30 07:49] LABS: HEMATOCRIT 36.1 % (36.0-47.0); MEAN CORPUSCULAR HEMOGLOBIN 28.6 pg (27.0-33.0); MEAN CORPUSCULAR HGB CONC 30.5 g/dl (32.0-36.5); MEAN CORPUSCULAR VOLUME 93.8 fl (80.0-96.0); PLATELET COUNT, AUTOMATED 306 10^3/uL (150-450); RED BLOOD COUNT 3.85 10^6/uL (4.00-5.40); WHITE BLOOD COUNT 7.2 10^3/uL (4.0-10.0)
[2022-01-30 09:30] LABS: BLOOD UREA NITROGEN 13 MG/DL (7-18); CALCIUM LEVEL 8.9 MG/DL (8.8-10.2); CARBON DIOXIDE LEVEL 30 MEQ/L (21-32); CHLORIDE LEVEL 111 MEQ/L (98-107); CREATININE FOR GFR 0.86 MG/DL (0.55-1.30); GLOMERULAR FILTRATION RATE > 60.0 (>39); GLUCOSE, FASTING 85 MG/DL (70-100); POTASSIUM SERUM 4.6 MEQ/L (3.5-5.1); SODIUM LEVEL 144 MEQ/L (136-145)
== END ==
LOC: SKLAB3 11:33
PROVIDERS: ATTEND Internal Medicine
DX: K62.5 Hemorrhage of anus and rectum (principal)

== ENCOUNTER → 2022-02-02 | Outpatient (REF) | LOC: SKLAB3 11:34 | PROVIDERS: ATTEND Internal Medicine | DX: D64.9 Anemia, unspecified (principal); Z53.9 Procedure and treatment not carried out, unspecified reason ==

== ENCOUNTER → 2022-02-16 | Outpatient (REF) ==
[2022-02-16 09:34] LABS: HEMATOCRIT 37.4 % (36.0-47.0); HEMOGLOBIN 11.4 g/dl (12.0-15.5); MEAN CORPUSCULAR HEMOGLOBIN 28.7 pg (27.0-33.0); MEAN CORPUSCULAR HGB CONC 30.5 g/dl (32.0-36.5); MEAN CORPUSCULAR VOLUME 94.2 fl (80.0-96.0); PLATELET COUNT, AUTOMATED 185 10^3/uL (150-450); RED BLOOD COUNT 3.97 10^6/uL (4.00-5.40); WHITE BLOOD COUNT 7.6 10^3/uL (4.0-10.0)
== END ==
LOC: SKLAB3 10:41
PROVIDERS: ATTEND Internal Medicine
DX: D64.9 Anemia, unspecified (principal)

== ENCOUNTER → 2022-02-24 | Outpatient (REF) | LOC: SKLAB7 10:43 | PROVIDERS: ATTEND Internal Medicine | DX: S72.402D Unspecified fracture of lower end of left femur, subsequent encounter for closed fracture with routine healing (principal); Z96.653 Presence of artificial knee joint, bilateral ==

== ENCOUNTER → 2022-04-14 | Outpatient (REF) | payer MEDICARE | LOC: M SOG 08:53 → EDSTATUS 04-22 11:47 | PROVIDERS: ATTEND Orthopaedic Surgery Adult Reconstructive Orthopaedic Surgery | DX: Z96.651 Presence of right artificial knee joint (principal); S72.352D Displaced comminuted fracture of shaft of left femur, subsequent encounter for closed fracture with routine healing ==

== ENCOUNTER → 2022-12-17 | Outpatient (CLI) | payer MEDICARE | LOC: M SOG 08:09 | PROVIDERS: ATTEND Orthopaedic Surgery Adult Reconstructive Orthopaedic Surgery | DX: S72.352D Displaced comminuted fracture of shaft of left femur, subsequent encounter for closed fracture with routine healing (principal); M97.12XD Periprosthetic fracture around internal prosthetic left knee joint, subsequent encounter; Y92.9 Unspecified place or not applicable; Y93.9 Activity, unspecified ==

== ENCOUNTER 2023-02-17 14:47 | Inpatient (IN) | payer MEDICARE ==
[~2023-02-17] VITALS: Ht 172.7 cm; Wt 83.9 kg
[2023-02-17 16:06] LABS: BASO % 0.9 % (0.0-1.0); EOS # 0.1 10^3/uL (0.0-0.5); EOS % 3.2 % (0.0-3.0); HEMATOCRIT 38.3 % (36.0-47.0); LYMPH # 0.8 10^3/uL (1.5-5.0); MEAN CORPUSCULAR HEMOGLOBIN 29.6 pg (27.0-33.0); MEAN CORPUSCULAR HGB CONC 31.3 g/dl (32.0-36.5); MEAN CORPUSCULAR VOLUME 94.6 fl (80.0-96.0); MONO # 0.5 10^3/uL (0.0-0.8); MONO % 11.8 % (2.0-8.0); NEUTROPHILS # 2.9 10^3/uL (1.5-8.5); NEUTROPHILS % 65.9 % (36.0-66.0); PLATELET COUNT, AUTOMATED 180 10^3/uL (150-450); RED BLOOD COUNT 4.05 10^6/uL (4.00-5.40); WHITE BLOOD COUNT 4.3 10^3/uL (4.0-10.0)
[2023-02-17] MEDS ORDERED: ACETAMINOPHEN TAB 650MG DOSE (2X325MG) PO ONE (16:15)
[2023-02-17] MEDS ORDERED: ONDANSETRON 4MG 2ML VIAL IV ONE (16:15)
[2023-02-17 16:16] LABS: INR 1.02; PROTHROMBIN TIME 13.6 SECONDS (12.5-14.5)
[2023-02-17 16:17] LABS: PARTIAL THROMBOPLASTIN TIME 31.1 SECONDS (24.8-34.2)
[2023-02-17 16:25] LABS: ALBUMIN 3.5 G/DL (3.2-5.2); BILIRUBIN,DIRECT 0.1 MG/DL (<0.4); BILIRUBIN,TOTAL 0.4 MG/DL (0.3-1.2); CALCIUM LEVEL 9.1 MG/DL (8.3-10.6); CK-MB VALUE MASS 1.7 NG/ML (<3.6); CREATININE FOR GFR 0.98 MG/DL (0.55-1.30); GLOMERULAR FILTRATION RATE 58.1 (>32); MB/CK RELATIVE INDEX 2.39 (< OR =4); POTASSIUM SERUM 4.3 MMOL/L (3.5-5.1); TOTAL PROTEIN 6.1 G/DL (5.7-8.2)
[2023-02-17 16:32] LABS: RSV AMPLIFICATION NEGATIVE (NEGATIVE)
[2023-02-17 17:37] LABS: CK-MB VALUE MASS 1.4 NG/ML (<3.6)
[2023-02-17 17:39] LABS: MB/CK RELATIVE INDEX 2.05 (< OR =4)
[2023-02-17] MEDS ORDERED: ELIQ2.5T PO (18:23)
[2023-02-17] MEDS ORDERED: GABA-1171 PO (18:23)
[2023-02-17] MEDS ORDERED: DOCU-153 PO (18:24)
[2023-02-17] MEDS ORDERED: HOME MED LIST COMPLETE! XX SCH (18:25)
[2023-02-17 19:37] VITALS: BP 148/84
[2023-02-17] MEDS ORDERED: ONDANSETRON 4MG 2ML VIAL IV PRN (20:00)
[2023-02-17] MEDS ORDERED: ACETAMINOPHEN TAB 650MG DOSE (2X325MG) PO PRN (20:00)
[2023-02-17] MEDS: ONDANSETRON 4MG 2ML VIAL IV PRN (22:59)
[2023-02-17] MEDS ORDERED: KETOROLAC 30 MG/ML 1ML VIAL IV ONE (23:00)
[2023-02-18] VITALS (12 sets, daily range): BP systolic 107–125; BP diastolic 56–72
[2023-02-18] MEDS: ACETAMINOPHEN TAB 650MG DOSE (2X325MG) PO PRN ×2 (05:56→22:12)
[2023-02-18 06:17] LABS: EOS # 0.2 10^3/uL (0.0-0.5); HEMOGLOBIN 11.4 g/dl (12.0-15.5); LYMPH # 0.9 10^3/uL (1.5-5.0); LYMPH % 21.4 % (24.0-44.0); MEAN CORPUSCULAR HEMOGLOBIN 29.8 pg (27.0-33.0); MEAN CORPUSCULAR HGB CONC 31.7 g/dl (32.0-36.5); MONO # 0.6 10^3/uL (0.0-0.8); MONO % 13.7 % (2.0-8.0); NEUTROPHILS # 2.4 10^3/uL (1.5-8.5); NEUTROPHILS % 59.7 % (36.0-66.0); PLATELET COUNT, AUTOMATED 172 10^3/uL (150-450); RED BLOOD COUNT 3.83 10^6/uL (4.00-5.40)
[2023-02-18 06:53] LABS: CALCIUM LEVEL 8.8 MG/DL (8.3-10.6); CREATININE FOR GFR 1.09 MG/DL (0.55-1.30); GLOMERULAR FILTRATION RATE 51.4 (>32); POTASSIUM SERUM 3.7 MMOL/L (3.5-5.1)
[2023-02-18] MEDS: DOCUSATE SODIUM 100MG CAPSULE PO SCH (08:39)
[2023-02-18] MEDS: GABAPENTIN 100 MG CAP PO SCH ×2 (08:39→13:11)
[2023-02-18] MEDS: AMIODARONE 200 MG TAB (PACERONE) PO SCH (08:39)
[2023-02-18] MEDS ORDERED: APIXABAN 2.5 MG TAB (ELIQUIS) PO SCH (09:00)
[2023-02-18] MEDS ORDERED: IMMUNE GLOBULIN 10% 0 GM in IV 1 EA IV SCH (16:10)
[2023-02-18] MEDS: ONDANSETRON 4MG 2ML VIAL IV PRN (18:11)
[2023-02-18] MEDS: IMMUNE GLOBULIN 10% 5 GM in IV 1 EA IV SCH (18:33)
[2023-02-18] MEDS: IMMUNE GLOBULIN 10% 10 GM in IV 1 EA IV SCH (19:47)
[2023-02-18] MEDS: GABAPENTIN 300 MG CAP PO SCH (20:35)
[2023-02-18] MEDS: ENOXAPARIN 80MG/0.8ML SYRINGE (J1650 PER 10MG) SC SCH (20:35)
[2023-02-18] MEDS: IMMUNE GLOBULIN 10% 20 GM in IV 1 EA IV SCH (20:39)
[2023-02-19] VITALS (18 sets, daily range): BP systolic 88–129; BP diastolic 40–83
[2023-02-19 06:21] LABS: HEMATOCRIT 35.3 % (36.0-47.0); HEMOGLOBIN 11.3 g/dl (12.0-15.5); MEAN CORPUSCULAR HEMOGLOBIN 29.8 pg (27.0-33.0); MEAN CORPUSCULAR VOLUME 93.1 fl (80.0-96.0); PLATELET COUNT, AUTOMATED 162 10^3/uL (150-450); RED BLOOD COUNT 3.79 10^6/uL (4.00-5.40); WHITE BLOOD COUNT 3.4 10^3/uL (4.0-10.0)
[2023-02-19 06:46] LABS: BILIRUBIN,TOTAL 0.4 MG/DL (0.3-1.2); CALCIUM LEVEL 8.2 MG/DL (8.3-10.6); CREATININE FOR GFR 1.09 MG/DL (0.55-1.30); GLOMERULAR FILTRATION RATE 51.4 (>32); POTASSIUM SERUM 3.7 MMOL/L (3.5-5.1); TOTAL PROTEIN 5.9 G/DL (5.7-8.2)
[2023-02-19] MEDS: ENOXAPARIN 80MG/0.8ML SYRINGE (J1650 PER 10MG) SC SCH ×2 (08:21→20:46)
[2023-02-19] MEDS: GABAPENTIN 100 MG CAP PO SCH ×2 (08:21→12:31)
[2023-02-19] MEDS: AMIODARONE 200 MG TAB (PACERONE) PO SCH (08:21)
[2023-02-19] MEDS: DOCUSATE SODIUM 100MG CAPSULE PO SCH (08:21)
[2023-02-19] MEDS: cefTRIAXone SOD 1 GM in D5W MINI-BAG PLUS 50 ML IV SCH (08:22)
[2023-02-19] MEDS: ONDANSETRON 4MG 2ML VIAL IV PRN ×2 (09:53→17:57)
[2023-02-19] MEDS ORDERED: NS 1,000 ML IV ONE (09:55)
[2023-02-19] MEDS: IMMUNE GLOBULIN 10% 5 GM in IV 1 EA IV SCH (19:01)
[2023-02-19] MEDS: IMMUNE GLOBULIN 10% 10 GM in IV 1 EA IV SCH (20:21)
[2023-02-19] MEDS: GABAPENTIN 300 MG CAP PO SCH (20:46)
[2023-02-19] MEDS: IMMUNE GLOBULIN 10% 20 GM in IV 1 EA IV SCH (22:00)
[2023-02-20] VITALS (9 sets, daily range): BP systolic 116–136; BP diastolic 68–78
[2023-02-20] MEDS: ONDANSETRON 4MG 2ML VIAL IV PRN ×2 (06:04→16:53)
[2023-02-20] MEDS: ACETAMINOPHEN TAB 650MG DOSE (2X325MG) PO PRN ×2 (06:04→16:44)
[2023-02-20 07:17] LABS: HEMATOCRIT 35.2 % (36.0-47.0); HEMOGLOBIN 11.3 g/dl (12.0-15.5); MEAN CORPUSCULAR HEMOGLOBIN 30.3 pg (27.0-33.0); MEAN CORPUSCULAR HGB CONC 32.1 g/dl (32.0-36.5); MEAN CORPUSCULAR VOLUME 94.4 fl (80.0-96.0); PLATELET COUNT, AUTOMATED 154 10^3/uL (150-450); RED BLOOD COUNT 3.73 10^6/uL (4.00-5.40); WHITE BLOOD COUNT 3.5 10^3/uL (4.0-10.0)
[2023-02-20 07:43] LABS: BILIRUBIN,TOTAL 0.4 MG/DL (0.3-1.2); CALCIUM LEVEL 7.9 MG/DL (8.3-10.6); GLOMERULAR FILTRATION RATE 56.8 (>32); POTASSIUM SERUM 3.8 MMOL/L (3.5-5.1); TOTAL PROTEIN 6.5 G/DL (5.7-8.2)
[2023-02-20] MEDS: DOCUSATE SODIUM 100MG CAPSULE PO SCH (09:00)
[2023-02-20] MEDS: GABAPENTIN 100 MG CAP PO SCH ×2 (09:00→12:17)
[2023-02-20] MEDS ORDERED: KETOROLAC 30 MG/ML 1ML VIAL IV ONE ×2 (09:30→16:40)
[2023-02-20] MEDS: ENOXAPARIN 80MG/0.8ML SYRINGE (J1650 PER 10MG) SC SCH ×2 (09:38→20:20)
[2023-02-20] MEDS: cefTRIAXone SOD 1 GM in D5W MINI-BAG PLUS 50 ML IV SCH (09:38)
[2023-02-20] MEDS: AMIODARONE 200 MG TAB (PACERONE) PO SCH (12:17)
[2023-02-20] MEDS ORDERED: NS 1,000 ML IV SCH (16:40)
[2023-02-20] MEDS ORDERED: NS 0.45% 1,000 ML IV SCH (16:45)
[2023-02-20 18:08] LABS: CK-MB VALUE MASS < 1.0 NG/ML (<3.6)
[2023-02-20 18:10] LABS: CPK CREATINE PHOSPHOKINASE 44 U/L (34-145); MB/CK RELATIVE INDEX 2.27 (< OR =4)
[2023-02-20] MEDS: IMMUNE GLOBULIN 10% 5 GM in IV 1 EA IV SCH (18:52)
[2023-02-20] MEDS: IMMUNE GLOBULIN 10% 10 GM in IV 1 EA IV SCH (20:10)
[2023-02-20] MEDS: GABAPENTIN 300 MG CAP PO SCH (20:20)
[2023-02-20] MEDS: IMMUNE GLOBULIN 10% 20 GM in IV 1 EA IV SCH (20:56)
[2023-02-21] MEDS: ONDANSETRON 4MG 2ML VIAL IV PRN ×3 (01:10→17:27)
[2023-02-21 05:35] VITALS: BP 135/79
[2023-02-21 06:03] LABS: HEMATOCRIT 35.3 % (36.0-47.0); HEMOGLOBIN 11.4 g/dl (12.0-15.5); MEAN CORPUSCULAR HEMOGLOBIN 30.1 pg (27.0-33.0); MEAN CORPUSCULAR HGB CONC 32.3 g/dl (32.0-36.5); MEAN CORPUSCULAR VOLUME 93.1 fl (80.0-96.0); PLATELET COUNT, AUTOMATED 155 10^3/uL (150-450); RED BLOOD COUNT 3.79 10^6/uL (4.00-5.40); WHITE BLOOD COUNT 4.9 10^3/uL (4.0-10.0)
[2023-02-21 06:28] LABS: ALBUMIN 2.6 G/DL (3.2-5.2); ALKALINE PHOSPHATASE 81 U/L (46-116); ALT/SGPT 13 U/L (7.0-40); AST/SGOT 15 U/L (<34); BILIRUBIN,TOTAL 0.5 MG/DL (0.3-1.2); BLOOD UREA NITROGEN 18 MG/DL (9-23); CALCIUM LEVEL 8.2 MG/DL (8.3-10.6); CARBON DIOXIDE LEVEL 25 MMOL/L (20-31); CHLORIDE LEVEL 108 MMOL/L (98-107); CREATININE FOR GFR 0.93 MG/DL (0.55-1.30); GLOMERULAR FILTRATION RATE > 60.0 (>32); GLUCOSE, FASTING 92 MG/DL (74-106); SODIUM LEVEL 141 MMOL/L (136-145); TOTAL PROTEIN 6.8 G/DL (5.7-8.2)
[2023-02-21] MEDS: cefTRIAXone SOD 1 GM in D5W MINI-BAG PLUS 50 ML IV SCH (08:48)
[2023-02-21] MEDS: ENOXAPARIN 80MG/0.8ML SYRINGE (J1650 PER 10MG) SC SCH (09:00)
[2023-02-21 09:02] VITALS: BP 139/82
[2023-02-21] MEDS: DOCUSATE SODIUM 100MG CAPSULE PO SCH ×3 (09:47→20:16)
[2023-02-21] MEDS: GABAPENTIN 100 MG CAP PO SCH ×2 (09:47→13:07)
[2023-02-21] MEDS: AMIODARONE 200 MG TAB (PACERONE) PO SCH (09:47)
[2023-02-21] MEDS ORDERED: PROMETHAZINE 25MG/ML 1ML VIAL IV PRN (10:05)
[2023-02-21] MEDS ORDERED: MIRALAX *UNIT DOSE* 17GM PACKET PO PRN (10:05)
[2023-02-21 12:12] LABS: CPK CREATINE PHOSPHOKINASE 60 U/L (34-145)
[2023-02-21 12:15] LABS: VITAMIN B12 LEVEL 187 PG/ML (211-911)
[2023-02-21 14:00] VITALS: BP 140/82
[2023-02-21 14:02] LABS: CSF TUBE# TP TUBE 2; TOTAL PROTEIN,CSF 94.5 MG/DL (15-45)
[2023-02-21 14:05] LABS: CSF TUBE# GLU TUBE 2
[2023-02-21 14:09] LABS: APPEARANCE, CSF HAZY (CLEAR); COLOR, CSF COLORLESS (COLORLESS); CSF TUBE# CELL CNT TUBE 1
[2023-02-21 14:12] LABS: APPEARANCE, CSF HAZY (CLEAR); COLOR, CSF COLORLESS (COLORLESS); CSF TUBE# CELL CNT TUBE 4
[2023-02-21 15:30] VITALS: BP 139/82
[2023-02-21] MEDS: ACETAMINOPHEN TAB 650MG DOSE (2X325MG) PO PRN ×2 (17:26→22:02)
[2023-02-21] MEDS: cefTRIAXone SOD 2 GM in D5W MINI-BAG PLUS 50 ML IV SCH (20:16)
[2023-02-21] MEDS: GABAPENTIN 300 MG CAP PO SCH (20:17)
[2023-02-21 21:00] VITALS: BP 121/69
[2023-02-21] MEDS ORDERED: SENNA 8.6 MG TAB (SENOKOT) PO SCH (21:00)
[2023-02-21] MEDS ORDERED: VANCOMYCIN HCL 1,000 MG, VIAL MATE ADAPTER 1 EACH in D5W 250 ML IV ONE (21:00)
[2023-02-21] MEDS ORDERED: VANCOMYCIN HCL 750 MG, VIAL MATE ADAPTER 1 EACH in D5W 250 ML IV ONE (22:00)
[2023-02-22] MEDS: ACETAMINOPHEN TAB 650MG DOSE (2X325MG) PO PRN (03:25)
[2023-02-22] MEDS: VANCOMYCIN HCL 1,000 MG, VIAL MATE ADAPTER 1 EACH in NS 250 ML IV SCH ×2 (05:08→17:57)
[2023-02-22 05:55] LABS: HEMATOCRIT 35.6 % (36.0-47.0); HEMOGLOBIN 11.8 g/dl (12.0-15.5); MEAN CORPUSCULAR HEMOGLOBIN 30.1 pg (27.0-33.0); MEAN CORPUSCULAR HGB CONC 33.1 g/dl (32.0-36.5); MEAN CORPUSCULAR VOLUME 90.8 fl (80.0-96.0); PLATELET COUNT, AUTOMATED 150 10^3/uL (150-450); RED BLOOD COUNT 3.92 10^6/uL (4.00-5.40); WHITE BLOOD COUNT 4.1 10^3/uL (4.0-10.0)
[2023-02-22 06:00] VITALS: BP 128/74
[2023-02-22 06:29] LABS: ALBUMIN 2.6 G/DL (3.2-5.2); ALKALINE PHOSPHATASE 84 U/L (46-116); ALT/SGPT < 9 U/L (7.0-40); AST/SGOT 18 U/L (<34); BILIRUBIN,TOTAL 0.4 MG/DL (0.3-1.2); BLOOD UREA NITROGEN 18 MG/DL (9-23); CALCIUM LEVEL 8.3 MG/DL (8.3-10.6); CARBON DIOXIDE LEVEL 25 MMOL/L (20-31); CHLORIDE LEVEL 106 MMOL/L (98-107); CREATININE FOR GFR 0.87 MG/DL (0.55-1.30); GLOMERULAR FILTRATION RATE > 60.0 (>32); GLUCOSE, FASTING 138 MG/DL (74-106); POTASSIUM SERUM 4.1 MMOL/L (3.5-5.1); SODIUM LEVEL 138 MMOL/L (136-145); TOTAL PROTEIN 6.7 G/DL (5.7-8.2)
[2023-02-22] MEDS ORDERED: ACETAMINOPHEN 1000MG 100ML IV BAG IV ONE (06:40)
[2023-02-22] MEDS: cefTRIAXone SOD 2 GM in D5W MINI-BAG PLUS 50 ML IV SCH ×2 (08:35→21:24)
[2023-02-22] MEDS: DOCUSATE SODIUM 100MG CAPSULE PO SCH (08:35)
[2023-02-22] MEDS: GABAPENTIN 100 MG CAP PO SCH ×2 (08:35→13:20)
[2023-02-22] MEDS: AMIODARONE 200 MG TAB (PACERONE) PO SCH (08:35)
[2023-02-22] MEDS: CYANOCOBALAMIN 1,000MCG/ML 1ML VIAL SC SCH (10:39)
[2023-02-22 14:00] VITALS: BP 128/71
[2023-02-22 20:00] VITALS: BP 117/70
[2023-02-22] MEDS: GABAPENTIN 300 MG CAP PO SCH (21:25)
[2023-02-22] MEDS: ENOXAPARIN 80MG/0.8ML SYRINGE (J1650 PER 10MG) SC SCH (21:25)
[2023-02-22] MEDS: SENOKOT S TAB PO SCH (21:25)
[2023-02-23] MEDS: VANCOMYCIN HCL 1,000 MG, VIAL MATE ADAPTER 1 EACH in NS 250 ML IV SCH ×2 (04:53→17:42)
[2023-02-23] MEDS: ACETAMINOPHEN TAB 650MG DOSE (2X325MG) PO PRN (05:06)
[2023-02-23 05:34] LABS: HEMATOCRIT 36.4 % (36.0-47.0); HEMOGLOBIN 12.3 g/dl (12.0-15.5); MEAN CORPUSCULAR HEMOGLOBIN 30.7 pg (27.0-33.0); MEAN CORPUSCULAR HGB CONC 33.8 g/dl (32.0-36.5); MEAN CORPUSCULAR VOLUME 90.8 fl (80.0-96.0); PLATELET COUNT, AUTOMATED 189 10^3/uL (150-450); RED BLOOD COUNT 4.01 10^6/uL (4.00-5.40); WHITE BLOOD COUNT 5.6 10^3/uL (4.0-10.0)
[2023-02-23 05:55] LABS: ALBUMIN 2.9 G/DL (3.2-5.2); ALKALINE PHOSPHATASE 80 U/L (46-116); ALT/SGPT 26 U/L (7.0-40); AST/SGOT 27 U/L (<34); BILIRUBIN,TOTAL 0.3 MG/DL (0.3-1.2); BLOOD UREA NITROGEN 22 MG/DL (9-23); CALCIUM LEVEL 8.2 MG/DL (8.3-10.6); CARBON DIOXIDE LEVEL 29 MMOL/L (20-31); CHLORIDE LEVEL 110 MMOL/L (98-107); CREATININE FOR GFR 0.92 MG/DL (0.55-1.30); GLOMERULAR FILTRATION RATE > 60.0 (>32); GLUCOSE, FASTING 128 MG/DL (74-106); POTASSIUM SERUM 3.8 MMOL/L (3.5-5.1); SODIUM LEVEL 139 MMOL/L (136-145); TOTAL PROTEIN 6.9 G/DL (5.7-8.2)
[2023-02-23 06:00] VITALS: BP 119/70
[2023-02-23] MEDS: AMIODARONE 200 MG TAB (PACERONE) PO SCH (09:32)
[2023-02-23] MEDS: ENOXAPARIN 80MG/0.8ML SYRINGE (J1650 PER 10MG) SC SCH ×2 (09:32→22:23)
[2023-02-23] MEDS: CYANOCOBALAMIN 500 MCG TAB PO SCH (09:32)
[2023-02-23] MEDS: cefTRIAXone SOD 2 GM in D5W MINI-BAG PLUS 50 ML IV SCH ×2 (09:32→22:23)
[2023-02-23] MEDS: GABAPENTIN 100 MG CAP PO SCH ×2 (09:33→13:15)
[2023-02-23] MEDS: SENOKOT S TAB PO SCH ×2 (09:33→22:23)
[2023-02-23] MEDS ORDERED: MIRALAX *UNIT DOSE* 17GM PACKET PO ONE (11:15)
[2023-02-23 14:00] VITALS: BP 115/63
[2023-02-23 22:00] VITALS: BP 119/71
[2023-02-23] MEDS: GABAPENTIN 300 MG CAP PO SCH (22:23)
[2023-02-24] MEDS: VANCOMYCIN HCL 1,000 MG, VIAL MATE ADAPTER 1 EACH in NS 250 ML IV SCH ×2 (04:34→16:05)
[2023-02-24 06:00] VITALS: BP 118/70
[2023-02-24 07:15] LABS: HEMOGLOBIN 11.9 g/dl (12.0-15.5); LYMPH # 0.2 10^3/uL (1.5-5.0); LYMPH % 4.1 % (24.0-44.0); MEAN CORPUSCULAR HEMOGLOBIN 30.1 pg (27.0-33.0); MEAN CORPUSCULAR HGB CONC 32.2 g/dl (32.0-36.5); MEAN CORPUSCULAR VOLUME 93.4 fl (80.0-96.0); MONO # 0.3 10^3/uL (0.0-0.8); MONO % 4.3 % (2.0-8.0); NEUTROPHILS # 5.3 10^3/uL (1.5-8.5); NEUTROPHILS % 91.1 % (36.0-66.0); PLATELET COUNT, AUTOMATED 146 10^3/uL (150-450); RED BLOOD COUNT 3.96 10^6/uL (4.00-5.40); WHITE BLOOD COUNT 5.8 10^3/uL (4.0-10.0)
[2023-02-24 07:47] LABS: ALBUMIN 2.8 G/DL (3.2-5.2); ALKALINE PHOSPHATASE 77 U/L (46-116); ALT/SGPT 32 U/L (7.0-40); AST/SGOT 27 U/L (<34); BILIRUBIN,TOTAL 0.3 MG/DL (0.3-1.2); BLOOD UREA NITROGEN 29 MG/DL (9-23); CALCIUM LEVEL 8.3 MG/DL (8.3-10.6); CARBON DIOXIDE LEVEL 28 MMOL/L (20-31); CHLORIDE LEVEL 110 MMOL/L (98-107); CREATININE FOR GFR 0.86 MG/DL (0.55-1.30); GLOMERULAR FILTRATION RATE > 60.0 (>32); GLUCOSE, FASTING 125 MG/DL (74-106); MAGNESIUM LEVEL 2.1 MG/DL (1.8-2.4); POTASSIUM SERUM 3.9 MMOL/L (3.5-5.1); SODIUM LEVEL 143 MMOL/L (136-145); TOTAL PROTEIN 6.4 G/DL (5.7-8.2)
[2023-02-24] MEDS: cefTRIAXone SOD 2 GM in D5W MINI-BAG PLUS 50 ML IV SCH ×2 (08:14→21:21)
[2023-02-24] MEDS: ENOXAPARIN 80MG/0.8ML SYRINGE (J1650 PER 10MG) SC SCH ×2 (08:17→21:21)
[2023-02-24] MEDS: SENOKOT S TAB PO SCH ×2 (08:18→21:21)
[2023-02-24] MEDS: CYANOCOBALAMIN 500 MCG TAB PO SCH (08:18)
[2023-02-24] MEDS: AMIODARONE 200 MG TAB (PACERONE) PO SCH (08:18)
[2023-02-24] MEDS: GABAPENTIN 100 MG CAP PO SCH ×2 (08:18→11:35)
[2023-02-24 11:08] LABS: VITAMIN B1 LEVEL WHOLE BLOOD 92.5 nmol/L (66.5-200.0)
[2023-02-24 14:00] VITALS: BP 111/65
[2023-02-24] MEDS ORDERED: PROHANCE 279.3MG/ML 5ML VIAL As Ordered ONE (17:59)
[2023-02-24] MEDS ORDERED: PROHANCE 279.3MG/ML 15ML VIAL As Ordered ONE (18:00)
[2023-02-24 21:00] VITALS: BP 116/65
[2023-02-24] MEDS: GABAPENTIN 300 MG CAP PO SCH (21:21)
[2023-02-24] MEDS: ACETAMINOPHEN TAB 650MG DOSE (2X325MG) PO PRN (23:47)
[2023-02-25 06:00] VITALS: BP 121/65
[2023-02-25 06:36] LABS: HEMATOCRIT 34.8 % (36.0-47.0); HEMOGLOBIN 11.5 g/dl (12.0-15.5); LYMPH # 0.3 10^3/uL (1.5-5.0); LYMPH % 5.2 % (24.0-44.0); MEAN CORPUSCULAR HEMOGLOBIN 30.4 pg (27.0-33.0); MEAN CORPUSCULAR VOLUME 92.1 fl (80.0-96.0); MONO # 0.2 10^3/uL (0.0-0.8); MONO % 4.3 % (2.0-8.0); NEUTROPHILS # 4.4 10^3/uL (1.5-8.5); NEUTROPHILS % 90.1 % (36.0-66.0); PLATELET COUNT, AUTOMATED 138 10^3/uL (150-450); RED BLOOD COUNT 3.78 10^6/uL (4.00-5.40); WHITE BLOOD COUNT 4.9 10^3/uL (4.0-10.0)
[2023-02-25 07:04] LABS: ALBUMIN 2.5 G/DL (3.2-5.2); ALKALINE PHOSPHATASE 76 U/L (46-116); ALT/SGPT 18 U/L (7.0-40); AST/SGOT 17 U/L (<34); BILIRUBIN,TOTAL 0.3 MG/DL (0.3-1.2); BLOOD UREA NITROGEN 31 MG/DL (9-23); CALCIUM LEVEL 7.7 MG/DL (8.3-10.6); CARBON DIOXIDE LEVEL 27 MMOL/L (20-31); CHLORIDE LEVEL 111 MMOL/L (98-107); CREATININE FOR GFR 0.83 MG/DL (0.55-1.30); GLOMERULAR FILTRATION RATE > 60.0 (>32); GLUCOSE, FASTING 119 MG/DL (74-106); POTASSIUM SERUM 3.9 MMOL/L (3.5-5.1); SODIUM LEVEL 143 MMOL/L (136-145); TOTAL PROTEIN 5.9 G/DL (5.7-8.2)
[2023-02-25] MEDS: cefTRIAXone SOD 2 GM in D5W MINI-BAG PLUS 50 ML IV SCH (08:41)
[2023-02-25] MEDS: ENOXAPARIN 80MG/0.8ML SYRINGE (J1650 PER 10MG) SC SCH (08:41)
[2023-02-25] MEDS: GABAPENTIN 100 MG CAP PO SCH ×2 (08:42→13:14)
[2023-02-25] MEDS: AMIODARONE 200 MG TAB (PACERONE) PO SCH (08:42)
[2023-02-25] MEDS: CYANOCOBALAMIN 500 MCG TAB PO SCH (08:42)
[2023-02-25] MEDS: SENOKOT S TAB PO SCH ×3 (08:42→21:00)
[2023-02-25 14:00] VITALS: BP 118/67
[2023-02-25 20:25] VITALS: BP 120/66
[2023-02-25] MEDS: GABAPENTIN 300 MG CAP PO SCH (22:39)
[2023-02-25] MEDS: APIXABAN 2.5 MG TAB (ELIQUIS) PO SCH (22:39)
[2023-02-25] MEDS: ACETAMINOPHEN TAB 650MG DOSE (2X325MG) PO PRN (23:50)
[2023-02-26 05:36] VITALS: BP 126/71
[2023-02-26 06:14] LABS: LYMPH # 0.3 10^3/uL (1.5-5.0); LYMPH % 5.2 % (24.0-44.0); MEAN CORPUSCULAR HEMOGLOBIN 30.5 pg (27.0-33.0); MEAN CORPUSCULAR HGB CONC 33.3 g/dl (32.0-36.5); MEAN CORPUSCULAR VOLUME 91.6 fl (80.0-96.0); MONO # 0.4 10^3/uL (0.0-0.8); MONO % 6.3 % (2.0-8.0); NEUTROPHILS # 4.9 10^3/uL (1.5-8.5); NEUTROPHILS % 87.4 % (36.0-66.0); PLATELET COUNT, AUTOMATED 150 10^3/uL (150-450); RED BLOOD COUNT 3.93 10^6/uL (4.00-5.40); WHITE BLOOD COUNT 5.6 10^3/uL (4.0-10.0)
[2023-02-26 06:35] LABS: ALBUMIN 2.4 G/DL (3.2-5.2); ALKALINE PHOSPHATASE 82 U/L (46-116); ALT/SGPT 23 U/L (7.0-40); AST/SGOT 15 U/L (<34); BILIRUBIN,TOTAL 0.3 MG/DL (0.3-1.2); BLOOD UREA NITROGEN 29 MG/DL (9-23); CARBON DIOXIDE LEVEL 26 MMOL/L (20-31); CHLORIDE LEVEL 112 MMOL/L (98-107); CREATININE FOR GFR 0.73 MG/DL (0.55-1.30); GLOMERULAR FILTRATION RATE > 60.0 (>32); GLUCOSE, FASTING 122 MG/DL (74-106); POTASSIUM SERUM 3.8 MMOL/L (3.5-5.1); SODIUM LEVEL 143 MMOL/L (136-145); TOTAL PROTEIN 5.8 G/DL (5.7-8.2)
[2023-02-26] MEDS: APIXABAN 2.5 MG TAB (ELIQUIS) PO SCH ×2 (08:33→21:58)
[2023-02-26] MEDS: GABAPENTIN 100 MG CAP PO SCH ×2 (08:33→11:41)
[2023-02-26] MEDS: AMIODARONE 200 MG TAB (PACERONE) PO SCH (08:34)
[2023-02-26] MEDS: CYANOCOBALAMIN 500 MCG TAB PO SCH (08:34)
[2023-02-26] MEDS: SENOKOT S TAB PO SCH ×2 (08:34→21:00)
[2023-02-26 14:00] VITALS: BP 127/70
[2023-02-26 21:48] VITALS: BP 133/84
[2023-02-26] MEDS: GABAPENTIN 300 MG CAP PO SCH (21:58)
[2023-02-27 04:58] VITALS: BP 130/83
[2023-02-27 06:36] LABS: BASO % 0.2 % (0.0-1.0); HEMATOCRIT 37.4 % (36.0-47.0); HEMOGLOBIN 12.4 g/dl (12.0-15.5); LYMPH # 0.4 10^3/uL (1.5-5.0); LYMPH % 6.4 % (24.0-44.0); MEAN CORPUSCULAR HEMOGLOBIN 30.5 pg (27.0-33.0); MEAN CORPUSCULAR HGB CONC 33.2 g/dl (32.0-36.5); MEAN CORPUSCULAR VOLUME 91.9 fl (80.0-96.0); MONO # 0.9 10^3/uL (0.0-0.8); MONO % 13.1 % (2.0-8.0); NEUTROPHILS # 5.2 10^3/uL (1.5-8.5); NEUTROPHILS % 79.4 % (36.0-66.0); PLATELET COUNT, AUTOMATED 148 10^3/uL (150-450); RED BLOOD COUNT 4.07 10^6/uL (4.00-5.40); WHITE BLOOD COUNT 6.5 10^3/uL (4.0-10.0)
[2023-02-27 06:54] LABS: ALBUMIN 2.4 G/DL (3.2-5.2); ALKALINE PHOSPHATASE 73 U/L (46-116); ALT/SGPT 26 U/L (7.0-40); AST/SGOT 30 U/L (<34); BILIRUBIN,TOTAL 0.4 MG/DL (0.3-1.2); BLOOD UREA NITROGEN 27 MG/DL (9-23); CALCIUM LEVEL 7.9 MG/DL (8.3-10.6); CARBON DIOXIDE LEVEL 26 MMOL/L (20-31); CHLORIDE LEVEL 111 MMOL/L (98-107); CREATININE FOR GFR 0.72 MG/DL (0.55-1.30); GLOMERULAR FILTRATION RATE > 60.0 (>32); GLUCOSE, FASTING 95 MG/DL (74-106); MAGNESIUM LEVEL 2.1 MG/DL (1.8-2.4); POTASSIUM SERUM 3.7 MMOL/L (3.5-5.1); SODIUM LEVEL 144 MMOL/L (136-145); TOTAL PROTEIN 5.6 G/DL (5.7-8.2)
[2023-02-27] MEDS: CYANOCOBALAMIN 500 MCG TAB PO SCH (08:43)
[2023-02-27] MEDS: APIXABAN 2.5 MG TAB (ELIQUIS) PO SCH ×2 (08:44→20:25)
[2023-02-27] MEDS: AMIODARONE 200 MG TAB (PACERONE) PO SCH (08:44)
[2023-02-27] MEDS: SENOKOT S TAB PO SCH ×2 (08:44→20:25)
[2023-02-27] MEDS: GABAPENTIN 100 MG CAP PO SCH ×2 (08:44→11:26)
[2023-02-27 14:00] VITALS: BP 128/72
[2023-02-27 19:56] VITALS: BP 125/97
[2023-02-27] MEDS: GABAPENTIN 300 MG CAP PO SCH (20:25)
[2023-02-28] MEDS: ACETAMINOPHEN TAB 650MG DOSE (2X325MG) PO PRN (03:25)
[2023-02-28 06:00] VITALS: BP 126/74
[2023-02-28 07:09] LABS: BASO % 0.1 % (0.0-1.0); EOS # 0.1 10^3/uL (0.0-0.5); EOS % 0.8 % (0.0-3.0); HEMATOCRIT 39.1 % (36.0-47.0); HEMOGLOBIN 13.1 g/dl (12.0-15.5); LYMPH # 0.5 10^3/uL (1.5-5.0); LYMPH % 4.6 % (24.0-44.0); MEAN CORPUSCULAR HEMOGLOBIN 30.7 pg (27.0-33.0); MEAN CORPUSCULAR HGB CONC 33.5 g/dl (32.0-36.5); MEAN CORPUSCULAR VOLUME 91.6 fl (80.0-96.0); MONO # 1.2 10^3/uL (0.0-0.8); MONO % 10.3 % (2.0-8.0); NEUTROPHILS # 9.7 10^3/uL (1.5-8.5); NEUTROPHILS % 83.4 % (36.0-66.0); PLATELET COUNT, AUTOMATED 150 10^3/uL (150-450); RED BLOOD COUNT 4.27 10^6/uL (4.00-5.40); WHITE BLOOD COUNT 11.6 10^3/uL (4.0-10.0)
[2023-02-28 07:25] LABS: ALBUMIN 2.4 G/DL (3.2-5.2); ALKALINE PHOSPHATASE 83 U/L (46-116); ALT/SGPT 34 U/L (7.0-40); AST/SGOT 35 U/L (<34); BILIRUBIN,TOTAL 0.5 MG/DL (0.3-1.2); BLOOD UREA NITROGEN 25 MG/DL (9-23); CARBON DIOXIDE LEVEL 26 MMOL/L (20-31); CHLORIDE LEVEL 111 MMOL/L (98-107); GLOMERULAR FILTRATION RATE > 60.0 (>32); GLUCOSE, FASTING 95 MG/DL (74-106); MAGNESIUM LEVEL 1.9 MG/DL (1.8-2.4); POTASSIUM SERUM 3.7 MMOL/L (3.5-5.1); SODIUM LEVEL 143 MMOL/L (136-145); TOTAL PROTEIN 5.5 G/DL (5.7-8.2)
[2023-02-28] MEDS: AMIODARONE 200 MG TAB (PACERONE) PO SCH (08:40)
[2023-02-28] MEDS: APIXABAN 2.5 MG TAB (ELIQUIS) PO SCH ×2 (08:40→21:34)
[2023-02-28] MEDS: SENOKOT S TAB PO SCH ×2 (08:41→21:00)
[2023-02-28] MEDS: GABAPENTIN 100 MG CAP PO SCH ×2 (08:41→13:41)
[2023-02-28] MEDS: CYANOCOBALAMIN 500 MCG TAB PO SCH (08:41)
[2023-02-28 14:00] VITALS: BP 102/56
[2023-02-28 20:00] VITALS: BP 102/57
[2023-02-28] MEDS: GABAPENTIN 300 MG CAP PO SCH (21:34)
[2023-03-01 06:00] VITALS: BP 123/71
[2023-03-01 06:12] LABS: BASO % 0.1 % (0.0-1.0); EOS # 0.1 10^3/uL (0.0-0.5); EOS % 1.4 % (0.0-3.0); HEMATOCRIT 37.7 % (36.0-47.0); HEMOGLOBIN 12.3 g/dl (12.0-15.5); LYMPH # 0.7 10^3/uL (1.5-5.0); LYMPH % 7.4 % (24.0-44.0); MEAN CORPUSCULAR HEMOGLOBIN 29.9 pg (27.0-33.0); MEAN CORPUSCULAR HGB CONC 32.6 g/dl (32.0-36.5); MEAN CORPUSCULAR VOLUME 91.5 fl (80.0-96.0); MONO # 1.1 10^3/uL (0.0-0.8); NEUTROPHILS # 7.5 10^3/uL (1.5-8.5); PLATELET COUNT, AUTOMATED 148 10^3/uL (150-450); RED BLOOD COUNT 4.12 10^6/uL (4.00-5.40); WHITE BLOOD COUNT 9.5 10^3/uL (4.0-10.0)
[2023-03-01 06:40] LABS: ALBUMIN 2.3 G/DL (3.2-5.2); ALKALINE PHOSPHATASE 72 U/L (46-116); ALT/SGPT 23 U/L (7.0-40); AST/SGOT 26 U/L (<34); BILIRUBIN,TOTAL 0.4 MG/DL (0.3-1.2); BLOOD UREA NITROGEN 23 MG/DL (9-23); CALCIUM LEVEL 7.9 MG/DL (8.3-10.6); CARBON DIOXIDE LEVEL 27 MMOL/L (20-31); CHLORIDE LEVEL 112 MMOL/L (98-107); CREATININE FOR GFR 0.79 MG/DL (0.55-1.30); GLOMERULAR FILTRATION RATE > 60.0 (>32); GLUCOSE, FASTING 79 MG/DL (74-106); POTASSIUM SERUM 3.4 MMOL/L (3.5-5.1); SODIUM LEVEL 144 MMOL/L (136-145); TOTAL PROTEIN 5.3 G/DL (5.7-8.2)
[2023-03-01] MEDS ORDERED: POTASSIUM CHLORIDE 10MEQ SR TABLET PO ONE (07:50)
[2023-03-01] MEDS: SENOKOT S TAB PO SCH (09:00)
[2023-03-01] MEDS: CYANOCOBALAMIN 1,000MCG/ML 1ML VIAL SC SCH (09:45)
[2023-03-01] MEDS: APIXABAN 2.5 MG TAB (ELIQUIS) PO SCH (09:46)
[2023-03-01] MEDS: GABAPENTIN 100 MG CAP PO SCH ×2 (09:46→12:52)
[2023-03-01] MEDS: AMIODARONE 200 MG TAB (PACERONE) PO SCH (09:47)
[2023-03-01] MEDS: CYANOCOBALAMIN 500 MCG TAB PO SCH (09:50)
[2023-03-01] MEDS ORDERED: VITA500T40 PO (11:12)
[2023-03-01 14:00] VITALS: BP 110/60
== END 2023-03-01 15:04 | DRG 871 ==
LOC: M ED 14:47 → EDBD 14:47 → M ED INP 14:48 → M MSPAV 19:38 → OBSVTOIN 02-18 07:54
PROVIDERS: ADMIT Internal Medicine; ATTEND Family Medicine
PROC: 009U3ZX Drainage of Spinal Canal, Percutaneous Approach, Diagnostic (ICD-10-PCS; principal; 2023-02-21 12:15)
DX: A41.9 Sepsis, unspecified organism (principal); G03.0 Nonpyogenic meningitis; G82.20 Paraplegia, unspecified; N39.0 Urinary tract infection, site not specified; I95.9 Hypotension, unspecified; B96.4 Proteus (mirabilis) (morganii) as the cause of diseases classified elsewhere; S14.12 Central cord syndrome of cervical spinal cord; R11.2 Nausea with vomiting, unspecified; R07.89 Other chest pain; R42 Dizziness and giddiness; R00.1 Bradycardia, unspecified; I48.0 Paroxysmal atrial fibrillation; M19.90 Unspecified osteoarthritis, unspecified site; E53.8 Deficiency of other specified B group vitamins; K59.00 Constipation, unspecified; G62.9 Polyneuropathy, unspecified; Z96.653 Presence of artificial knee joint, bilateral; Z90.49 Acquired absence of other specified parts of digestive tract; Z90.79 Acquired absence of other genital organ(s); Z20.822 Contact with and (suspected) exposure to COVID-19; Z79.899 Other long term (current) drug therapy; Z88.0 Allergy status to penicillin; Z88.8 Allergy status to other drugs, medicaments and biological substances; Z95.828 Presence of other vascular implants and grafts

== ENCOUNTER 2023-03-01 11:17 | Inpatient (IN) | payer MEDICARE ==
[~2023-03-01] VITALS: Ht 172.7 cm; Wt 87.4 kg
[~2023-03-01 11:17] MED LIST changes: +DOCU-153 PO; +VITA500T40 PO
[2023-03-01 15:20] VITALS: BP 131/66; TEMP 97.8; O2SAT 98
[2023-03-01] MEDS ORDERED: BISACODYL 10MG SUPP PR PRN (17:00)
[2023-03-01] MEDS: DOCUSATE SODIUM 100MG CAPSULE PO SCH (19:32)
[2023-03-01] MEDS: APIXABAN 2.5 MG TAB (ELIQUIS) PO SCH (19:59)
[2023-03-01 20:00] VITALS: BP 117/67; TEMP 99.1; O2SAT 96
[2023-03-01] MEDS: REMEDY PHYTOPLEX Z-GUARD PASTE 113GM TUBE (FROM STOREROOM PRODUCT) TOP SCH (20:00)
[2023-03-01] MEDS: GABAPENTIN 100 MG CAP PO SCH (20:00)
[2023-03-01] MEDS ORDERED: SENNA 8.6 MG TAB (SENOKOT) PO SCH (21:00)
[2023-03-02 06:00] VITALS: BP 130/72; TEMP 98; O2SAT 96
[2023-03-02 06:44] LABS: BASO % 0.1 % (0.0-1.0); EOS # 0.2 10^3/uL (0.0-0.5); EOS % 2.5 % (0.0-3.0); HEMATOCRIT 36.6 % (36.0-47.0); HEMOGLOBIN 11.8 g/dl (12.0-15.5); LYMPH # 0.7 10^3/uL (1.5-5.0); LYMPH % 10.3 % (24.0-44.0); MEAN CORPUSCULAR HEMOGLOBIN 30.2 pg (27.0-33.0); MEAN CORPUSCULAR HGB CONC 32.2 g/dl (32.0-36.5); MEAN CORPUSCULAR VOLUME 93.6 fl (80.0-96.0); MONO % 14.3 % (2.0-8.0); NEUTROPHILS # 4.9 10^3/uL (1.5-8.5); NEUTROPHILS % 71.9 % (36.0-66.0); PLATELET COUNT, AUTOMATED 141 10^3/uL (150-450); RED BLOOD COUNT 3.91 10^6/uL (4.00-5.40); WHITE BLOOD COUNT 6.8 10^3/uL (4.0-10.0)
[2023-03-02 07:05] LABS: ALBUMIN 2.1 G/DL (3.2-5.2); ALKALINE PHOSPHATASE 67 U/L (46-116); ALT/SGPT 17 U/L (7.0-40); AST/SGOT 22 U/L (<34); BILIRUBIN,TOTAL 0.4 MG/DL (0.3-1.2); BLOOD UREA NITROGEN 17 MG/DL (9-23); CALCIUM LEVEL 7.5 MG/DL (8.3-10.6); CARBON DIOXIDE LEVEL 28 MMOL/L (20-31); CHLORIDE LEVEL 112 MMOL/L (98-107); CREATININE FOR GFR 0.74 MG/DL (0.55-1.30); GLOMERULAR FILTRATION RATE > 60.0 (>32); GLUCOSE, FASTING 82 MG/DL (74-106); SODIUM LEVEL 144 MMOL/L (136-145)
[2023-03-02] MEDS: REMEDY PHYTOPLEX Z-GUARD PASTE 113GM TUBE (FROM STOREROOM PRODUCT) TOP SCH ×3 (09:00→21:13)
[2023-03-02] MEDS: PANTOPRAZOLE 40MG TAB (PROTONIX) PO SCH (09:00)
[2023-03-02] MEDS: DOCUSATE SODIUM 100MG CAPSULE PO SCH (09:00)
[2023-03-02] MEDS: APIXABAN 2.5 MG TAB (ELIQUIS) PO SCH ×2 (09:17→21:12)
[2023-03-02] MEDS: GABAPENTIN 100 MG CAP PO SCH ×3 (09:17→21:12)
[2023-03-02] MEDS: CYANOCOBALAMIN 500 MCG TAB PO SCH (09:17)
[2023-03-02] MEDS: AMIODARONE 200 MG TAB (PACERONE) PO SCH (09:17)
[2023-03-02 14:00] VITALS: BP 94/54; TEMP 98.4; O2SAT 96
[2023-03-02] MEDS: SIMETHICONE 80MG CHEW TAB PO SCH ×3 (14:03→21:12)
[2023-03-02] MEDS: ACETAMINOPHEN TAB 650MG DOSE (2X325MG) PO PRN (16:38)
[2023-03-02 20:00] VITALS: BP 112/66; TEMP 98.4; O2SAT 96
[2023-03-02] MEDS ORDERED: DOCUSATE SODIUM 100MG CAPSULE PO PRN (21:00)
[2023-03-02 22:00] VITALS: BP 112/66; TEMP 98.4; O2SAT 96
[2023-03-03 06:00] VITALS: BP 118/65; TEMP 98.2; O2SAT 98
[2023-03-03] MEDS ORDERED: HOME MED LIST COMPLETE! XX SCH (08:40)
[2023-03-03] MEDS: CYANOCOBALAMIN 500 MCG TAB PO SCH (08:45)
[2023-03-03] MEDS: SIMETHICONE 80MG CHEW TAB PO SCH ×3 (08:45→20:29)
[2023-03-03] MEDS: AMIODARONE 200 MG TAB (PACERONE) PO SCH (08:45)
[2023-03-03] MEDS: APIXABAN 2.5 MG TAB (ELIQUIS) PO SCH ×2 (08:45→20:29)
[2023-03-03] MEDS: REMEDY PHYTOPLEX Z-GUARD PASTE 113GM TUBE (FROM STOREROOM PRODUCT) TOP SCH ×3 (08:46→20:29)
[2023-03-03] MEDS: PANTOPRAZOLE 40MG TAB (PROTONIX) PO SCH (08:46)
[2023-03-03] MEDS: ACETAMINOPHEN TAB 650MG DOSE (2X325MG) PO PRN (08:46)
[2023-03-03] MEDS: GABAPENTIN 100 MG CAP PO SCH ×3 (08:46→20:29)
[2023-03-03 14:00] VITALS: BP 107/58; TEMP 98.1; O2SAT 98
[2023-03-03 20:00] VITALS: BP 122/66; TEMP 98.6; O2SAT 99
[2023-03-04 06:31] VITALS: BP 122/68; TEMP 97.7; O2SAT 93
[2023-03-04] MEDS: GABAPENTIN 100 MG CAP PO SCH ×3 (09:04→20:04)
[2023-03-04] MEDS: APIXABAN 2.5 MG TAB (ELIQUIS) PO SCH ×2 (09:04→20:03)
[2023-03-04] MEDS: AMIODARONE 200 MG TAB (PACERONE) PO SCH (09:04)
[2023-03-04] MEDS: CYANOCOBALAMIN 500 MCG TAB PO SCH (09:04)
[2023-03-04] MEDS: LOPERAMIDE 2 MG CAPLET PO PRN ×2 (09:04→16:14)
[2023-03-04] MEDS: SIMETHICONE 80MG CHEW TAB PO SCH ×3 (09:04→20:04)
[2023-03-04] MEDS: REMEDY PHYTOPLEX Z-GUARD PASTE 113GM TUBE (FROM STOREROOM PRODUCT) TOP SCH ×3 (09:06→20:04)
[2023-03-04 10:39] LABS: EOS # 0.1 10^3/uL (0.0-0.5); EOS % 2.9 % (0.0-3.0); HEMATOCRIT 35.5 % (36.0-47.0); HEMOGLOBIN 11.3 g/dl (12.0-15.5); LYMPH # 0.6 10^3/uL (1.5-5.0); LYMPH % 12.5 % (24.0-44.0); MEAN CORPUSCULAR HEMOGLOBIN 29.8 pg (27.0-33.0); MEAN CORPUSCULAR HGB CONC 31.8 g/dl (32.0-36.5); MEAN CORPUSCULAR VOLUME 93.7 fl (80.0-96.0); MONO # 0.6 10^3/uL (0.0-0.8); MONO % 12.5 % (2.0-8.0); NEUTROPHILS # 3.4 10^3/uL (1.5-8.5); NEUTROPHILS % 71.5 % (36.0-66.0); PLATELET COUNT, AUTOMATED 171 10^3/uL (150-450); RED BLOOD COUNT 3.79 10^6/uL (4.00-5.40); WHITE BLOOD COUNT 4.8 10^3/uL (4.0-10.0)
[2023-03-04 11:16] LABS: BLOOD UREA NITROGEN 15 MG/DL (9-23); CALCIUM LEVEL 8.1 MG/DL (8.3-10.6); CARBON DIOXIDE LEVEL 28 MMOL/L (20-31); CHLORIDE LEVEL 110 MMOL/L (98-107); CREATININE FOR GFR 0.73 MG/DL (0.55-1.30); GLOMERULAR FILTRATION RATE > 60.0 (>32); GLUCOSE, FASTING 97 MG/DL (74-106); POTASSIUM SERUM 4.3 MMOL/L (3.5-5.1); SODIUM LEVEL 142 MMOL/L (136-145)
[2023-03-04 14:00] VITALS: BP 111/59; TEMP 98.3; O2SAT 96
[2023-03-04] MEDS: ACETAMINOPHEN TAB 650MG DOSE (2X325MG) PO PRN (14:20)
[2023-03-04 20:00] VITALS: BP 110/61; TEMP 98.3; O2SAT 96
[2023-03-05] MEDS: ACETAMINOPHEN TAB 650MG DOSE (2X325MG) PO PRN (05:21)
[2023-03-05 06:00] VITALS: BP 126/68; TEMP 98; O2SAT 94
[2023-03-05] MEDS: SIMETHICONE 80MG CHEW TAB PO SCH ×3 (08:34→20:08)
[2023-03-05] MEDS: APIXABAN 2.5 MG TAB (ELIQUIS) PO SCH ×2 (08:34→20:08)
[2023-03-05] MEDS: AMIODARONE 200 MG TAB (PACERONE) PO SCH (08:34)
[2023-03-05] MEDS: REMEDY PHYTOPLEX Z-GUARD PASTE 113GM TUBE (FROM STOREROOM PRODUCT) TOP SCH ×3 (08:35→20:08)
[2023-03-05] MEDS: GABAPENTIN 100 MG CAP PO SCH ×3 (08:35→20:08)
[2023-03-05] MEDS: CYANOCOBALAMIN 500 MCG TAB PO SCH (08:35)
[2023-03-05 14:00] VITALS: BP 107/65; TEMP 97.4; O2SAT 95
[2023-03-05 20:00] VITALS: BP 109/59; TEMP 98; O2SAT 96
[2023-03-06 06:00] VITALS: BP 123/70; TEMP 97.6; O2SAT 97
[2023-03-06] MEDS: SIMETHICONE 80MG CHEW TAB PO SCH ×3 (08:50→21:52)
[2023-03-06] MEDS: REMEDY PHYTOPLEX Z-GUARD PASTE 113GM TUBE (FROM STOREROOM PRODUCT) TOP SCH ×3 (08:50→21:53)
[2023-03-06] MEDS: LOPERAMIDE 2 MG CAPLET PO PRN (08:50)
[2023-03-06] MEDS: GABAPENTIN 100 MG CAP PO SCH ×3 (08:50→21:53)
[2023-03-06] MEDS: APIXABAN 2.5 MG TAB (ELIQUIS) PO SCH ×2 (08:50→21:52)
[2023-03-06] MEDS: AMIODARONE 200 MG TAB (PACERONE) PO SCH (08:50)
[2023-03-06] MEDS: CYANOCOBALAMIN 500 MCG TAB PO SCH (08:50)
[2023-03-06 14:00] VITALS: BP 112/57; TEMP 97.7; O2SAT 98
[2023-03-06 20:00] VITALS: BP 96/55; TEMP 98; O2SAT 94
[2023-03-07] MEDS: ACETAMINOPHEN TAB 650MG DOSE (2X325MG) PO PRN ×2 (00:22→05:11)
[2023-03-07 05:34] VITALS: BP 111/58; TEMP 97.8; O2SAT 97
[2023-03-07] MEDS: SIMETHICONE 80MG CHEW TAB PO SCH ×3 (09:12→19:48)
[2023-03-07] MEDS: GABAPENTIN 100 MG CAP PO SCH ×3 (09:13→19:48)
[2023-03-07] MEDS: REMEDY PHYTOPLEX Z-GUARD PASTE 113GM TUBE (FROM STOREROOM PRODUCT) TOP SCH ×3 (09:13→19:49)
[2023-03-07] MEDS: AMIODARONE 200 MG TAB (PACERONE) PO SCH (09:13)
[2023-03-07] MEDS: APIXABAN 2.5 MG TAB (ELIQUIS) PO SCH ×2 (09:13→19:49)
[2023-03-07] MEDS: CYANOCOBALAMIN 500 MCG TAB PO SCH (09:13)
[2023-03-07 10:37] LABS: BASO % 0.5 % (0.0-1.0); EOS # 0.1 10^3/uL (0.0-0.5); EOS % 2.7 % (0.0-3.0); HEMATOCRIT 33.6 % (36.0-47.0); HEMOGLOBIN 10.7 g/dl (12.0-15.5); LYMPH # 0.7 10^3/uL (1.5-5.0); LYMPH % 16.5 % (24.0-44.0); MEAN CORPUSCULAR HEMOGLOBIN 30.1 pg (27.0-33.0); MEAN CORPUSCULAR HGB CONC 31.8 g/dl (32.0-36.5); MEAN CORPUSCULAR VOLUME 94.4 fl (80.0-96.0); MONO # 0.4 10^3/uL (0.0-0.8); MONO % 9.7 % (2.0-8.0); NEUTROPHILS # 2.9 10^3/uL (1.5-8.5); NEUTROPHILS % 70.1 % (36.0-66.0); PLATELET COUNT, AUTOMATED 190 10^3/uL (150-450); RED BLOOD COUNT 3.56 10^6/uL (4.00-5.40); WHITE BLOOD COUNT 4.1 10^3/uL (4.0-10.0)
[2023-03-07 11:10] LABS: BLOOD UREA NITROGEN 16 MG/DL (9-23); CALCIUM LEVEL 8.1 MG/DL (8.3-10.6); CARBON DIOXIDE LEVEL 28 MMOL/L (20-31); CHLORIDE LEVEL 110 MMOL/L (98-107); CREATININE FOR GFR 0.84 MG/DL (0.55-1.30); GLOMERULAR FILTRATION RATE > 60.0 (>32); GLUCOSE, FASTING 95 MG/DL (74-106); POTASSIUM SERUM 4.1 MMOL/L (3.5-5.1); SODIUM LEVEL 141 MMOL/L (136-145)
[2023-03-07 14:00] VITALS: BP 98/57; TEMP 97.4; O2SAT 98
[2023-03-07 19:53] VITALS: BP 106/57; TEMP 97.8; O2SAT 96
[2023-03-08] MEDS: ACETAMINOPHEN TAB 650MG DOSE (2X325MG) PO PRN (04:43)
[2023-03-08 06:00] VITALS: BP 104/63; TEMP 97.4; O2SAT 98
[2023-03-08] MEDS: REMEDY PHYTOPLEX Z-GUARD PASTE 113GM TUBE (FROM STOREROOM PRODUCT) TOP SCH ×3 (09:00→20:59)
[2023-03-08] MEDS: AMIODARONE 200 MG TAB (PACERONE) PO SCH (09:07)
[2023-03-08] MEDS: SIMETHICONE 80MG CHEW TAB PO SCH ×3 (09:07→20:33)
[2023-03-08] MEDS: GABAPENTIN 100 MG CAP PO SCH ×3 (09:07→20:33)
[2023-03-08] MEDS: CYANOCOBALAMIN 500 MCG TAB PO SCH (09:08)
[2023-03-08] MEDS: APIXABAN 2.5 MG TAB (ELIQUIS) PO SCH ×2 (09:08→20:33)
[2023-03-08 14:00] VITALS: BP 103/55; TEMP 97.2; O2SAT 96
[2023-03-08 20:00] VITALS: BP 107/55; TEMP 97.5; O2SAT 98
[2023-03-09] MEDS: ACETAMINOPHEN TAB 650MG DOSE (2X325MG) PO PRN (03:34)
[2023-03-09 06:00] VITALS: BP 134/84; TEMP 97.3; O2SAT 97
[2023-03-09] MEDS: APIXABAN 2.5 MG TAB (ELIQUIS) PO SCH (07:15)
[2023-03-09] MEDS: CYANOCOBALAMIN 500 MCG TAB PO SCH (07:15)
[2023-03-09] MEDS: SIMETHICONE 80MG CHEW TAB PO SCH (07:15)
[2023-03-09] MEDS: AMIODARONE 200 MG TAB (PACERONE) PO SCH (07:15)
[2023-03-09] MEDS: GABAPENTIN 100 MG CAP PO SCH ×2 (07:15→11:21)
[2023-03-09] MEDS: REMEDY PHYTOPLEX Z-GUARD PASTE 113GM TUBE (FROM STOREROOM PRODUCT) TOP SCH (07:16)
== END 2023-03-09 14:30 | disposition home health service (06) | DRG 949 ==
LOC: M PM&R 15:22
PROVIDERS: ADMIT Physical Medicine & Rehabilitation; ATTEND Physical Medicine & Rehabilitation
DX: S14.12 Central cord syndrome of cervical spinal cord (principal); G82.20 Paraplegia, unspecified; G95.89 Other specified diseases of spinal cord; I48.91 Unspecified atrial fibrillation; M19.90 Unspecified osteoarthritis, unspecified site; G63 Polyneuropathy in diseases classified elsewhere; I95.9 Hypotension, unspecified; G31.9 Degenerative disease of nervous system, unspecified; E53.8 Deficiency of other specified B group vitamins; R19.7 Diarrhea, unspecified; R32 Unspecified urinary incontinence; R00.1 Bradycardia, unspecified; K59.00 Constipation, unspecified; R26.89 Other abnormalities of gait and mobility; Z66 Do not resuscitate; Z96.653 Presence of artificial knee joint, bilateral; Z90.49 Acquired absence of other specified parts of digestive tract; Z90.79 Acquired absence of other genital organ(s); E78.5 Hyperlipidemia, unspecified; Z74.09 Other reduced mobility; Z74.1 Need for assistance with personal care; Z79.01 Long term (current) use of anticoagulants; Z79.899 Other long term (current) drug therapy; Z88.0 Allergy status to penicillin; Z88.8 Allergy status to other drugs, medicaments and biological substances

== ENCOUNTER → 2023-04-25 | Outpatient (REF) | payer MEDICARE ==
[2023-04-25 17:31] LABS: BASO # 0.1 10^3/uL (0.0-0.2); BASO % 0.8 % (0.0-1.0); EOS # 0.5 10^3/uL (0.0-0.5); EOS % 8.5 % (0.0-3.0); HEMATOCRIT 38.8 % (36.0-47.0); LYMPH # 0.9 10^3/uL (1.5-5.0); LYMPH % 15.8 % (24.0-44.0); MEAN CORPUSCULAR HGB CONC 30.9 g/dl (32.0-36.5); MONO # 0.6 10^3/uL (0.0-0.8); MONO % 10.4 % (2.0-8.0); NEUTROPHILS # 3.8 10^3/uL (1.5-8.5); NEUTROPHILS % 64.2 % (36.0-66.0); PLATELET COUNT, AUTOMATED 185 10^3/uL (150-450); WHITE BLOOD COUNT 5.9 10^3/uL (4.0-10.0)
[2023-04-25 17:53] LABS: PERCENT SATURATION 14.4 % (13.2-45.0)
[2023-04-25 17:55] LABS: FERRITIN 270.5 NG/ML (7.3-270.7)
== END ==
LOC: M LAB REF 16:45
PROVIDERS: ATTEND Internal Medicine
DX: S14.126 Central cord syndrome at C6 level of cervical spinal cord (principal); D64.9 Anemia, unspecified; D72.819 Decreased white blood cell count, unspecified

== ENCOUNTER 2023-10-11 16:00 | Observation (INO) | payer MEDICARE ==
[~2023-10-11] VITALS: Ht 172.7 cm; Wt 91.3 kg
[~2023-10-11 16:00] MED LIST changes: -DOCU-153 PO; -MIRA1POW3 PO; +MIRA33506 PO; +STOO100C30 PO
[2023-10-11] MEDS: ONDANSETRON 4MG 2ML VIAL IV ONE (17:34)
[2023-10-11 17:42] LABS: BLOOD UREA NITROGEN 25 MG/DL (9-23); CALCIUM LEVEL 8.8 MG/DL (8.3-10.6); CARBON DIOXIDE LEVEL 26 MMOL/L (20-31); CHLORIDE LEVEL 112 MMOL/L (98-107); CREATININE FOR GFR 1.04 MG/DL (0.55-1.30); GLOMERULAR FILTRATION RATE 54.3 (>32); GLUCOSE, FASTING 90 MG/DL (74-106); POTASSIUM SERUM 4.5 MMOL/L (3.5-5.1); SODIUM LEVEL 145 MMOL/L (136-145)
[2023-10-11 17:45] LABS: BASO % 0.4 % (0.0-1.0); EOS # 0.1 10^3/uL (0.0-0.5); HEMOGLOBIN 12.1 g/dl (12.0-15.5); LYMPH # 0.9 10^3/uL (1.5-5.0); LYMPH % 13.5 % (24.0-44.0); MEAN CORPUSCULAR HEMOGLOBIN 31.1 pg (27.0-33.0); MEAN CORPUSCULAR HGB CONC 32.7 g/dl (32.0-36.5); MEAN CORPUSCULAR VOLUME 95.1 fl (80.0-96.0); MONO # 0.5 10^3/uL (0.0-0.8); MONO % 7.5 % (2.0-8.0); NEUTROPHILS # 5.3 10^3/uL (1.5-8.5); NEUTROPHILS % 77.3 % (36.0-66.0); PLATELET COUNT, AUTOMATED 182 10^3/uL (150-450); RED BLOOD COUNT 3.89 10^6/uL (4.00-5.40); WHITE BLOOD COUNT 6.9 10^3/uL (4.0-10.0)
[2023-10-11] MEDS: NS 1,000 ML IV ONE (17:55)
[2023-10-11] MEDS ORDERED: CYAN-1 PO (18:54)
[2023-10-11] MEDS ORDERED: HOME MED LIST COMPLETE! XX SCH (18:55)
[2023-10-11] MEDS ORDERED: MOM 30ML SUSPENSION UDC PO PRN (19:00)
[2023-10-11 19:28] LABS: PROCALCITONIN <0.04 ng/ml
[2023-10-11] MEDS: LR 1,000 ML IV SCH (19:54)
[2023-10-11 20:46] LABS: INR 1.03; PROTHROMBIN TIME 13.2 SECONDS (12.5-14.5)
[2023-10-11 22:30] VITALS: BP 134/82; TEMP 98.8; O2SAT 94
[2023-10-11] MEDS: cefTRIAXone SOD 1 GM in D5W MINI-BAG PLUS 50 ML IV SCH (23:15)
[2023-10-11] MEDS: DOCUSATE SODIUM 100MG CAPSULE PO SCH (23:15)
[2023-10-11] MEDS: GABAPENTIN 100 MG CAP PO SCH (23:16)
[2023-10-11] MEDS: APIXABAN 2.5 MG TAB (ELIQUIS) PO SCH (23:16)
[2023-10-11] MEDS: ACETAMINOPHEN TAB 650MG DOSE (2X325MG) PO PRN (23:55)
[2023-10-12] VITALS (9 sets, daily range): BP systolic 82–136; BP diastolic 42–80; TEMP 97.7–98.6; O2SAT 88–95
[2023-10-12 06:11] LABS: HEMATOCRIT 35.2 % (36.0-47.0); HEMOGLOBIN 11.3 g/dl (12.0-15.5); MEAN CORPUSCULAR HEMOGLOBIN 30.9 pg (27.0-33.0); MEAN CORPUSCULAR HGB CONC 32.1 g/dl (32.0-36.5); MEAN CORPUSCULAR VOLUME 96.2 fl (80.0-96.0); PLATELET COUNT, AUTOMATED 164 10^3/uL (150-450); RED BLOOD COUNT 3.66 10^6/uL (4.00-5.40); WHITE BLOOD COUNT 5.9 10^3/uL (4.0-10.0)
[2023-10-12 06:45] LABS: CALCIUM LEVEL 8.5 MG/DL (8.3-10.6); CREATININE FOR GFR 0.99 MG/DL (0.55-1.30); GLOMERULAR FILTRATION RATE 57.5 (>32); POTASSIUM SERUM 4.1 MMOL/L (3.5-5.1)
[2023-10-12] MEDS: CALCIUM/VITAMIN D 500 MG TAB PO SCH (09:00)
[2023-10-12] MEDS: CYANOCOBALAMIN 1,000MCG/ML 1ML VIAL SC SCH (09:57)
[2023-10-12] MEDS: GABAPENTIN 100 MG CAP PO SCH (09:57)
[2023-10-13 02:11] VITALS: BP 124/69; TEMP 97.3; O2SAT 94
[2023-10-13 03:52] VITALS: BP 117/54; TEMP 98.2; O2SAT 93
[2023-10-13] MEDS: CEFDINIR 300 MG CAP (OMNICEF) PO SCH (08:00)
[2023-10-13 10:00] VITALS: BP 90/52; TEMP 98.1; O2SAT 91
[2023-10-13] MEDS: MIDODRINE 2.5 MG TAB PO SCH (10:42)
[2023-10-13 15:56] VITALS: BP 90/64
[2023-10-14 04:39] VITALS: BP 111/61; TEMP 98.1; O2SAT 96
[2023-10-14 15:38] VITALS: BP 94/52
[2023-10-15 06:00] VITALS: BP 115/59; TEMP 98.3; O2SAT 90
[2023-10-15 09:50] VITALS: BP 95/55
[2023-10-15 16:57] VITALS: BP 117/69
[2023-10-16 16:28] VITALS: BP 93/55
[2023-10-17 05:45] VITALS: BP 115/60; TEMP 97.9; O2SAT 94
[2023-10-17 09:10] VITALS: BP 102/58
[2023-10-17 16:46] VITALS: BP 100/57
[2023-10-18] MEDS: ONDANSETRON 4MG ORAL DISINTEGRATING TAB SL PRN (00:39)
[2023-10-18 05:38] VITALS: BP 103/56; TEMP 97.9; O2SAT 90
[2023-10-18 08:41] VITALS: BP 96/51
[2023-10-18 16:36] VITALS: BP 96/53
[2023-10-19 06:10] VITALS: BP 105/62; TEMP 98.4; O2SAT 91
[2023-10-19] MEDS ORDERED: MIDO2.5T PO (07:38)
[2023-10-19 08:12] VITALS: BP 106/62
== END 2023-10-19 08:36 | disposition home health service (06) ==
LOC: EDBD 16:00 → M ED 16:00 → M ED INP 16:01 → ENRESERV 21:08 → M MSPAV 22:30
PROVIDERS: ADMIT Student in an Organized Health Care Education/Training Program; ATTEND Student in an Organized Health Care Education/Training Program
DX: R53.1 Weakness (principal); N39.0 Urinary tract infection, site not specified; E86.0 Dehydration; I95.9 Hypotension, unspecified; I48.0 Paroxysmal atrial fibrillation; R00.1 Bradycardia, unspecified; R32 Unspecified urinary incontinence; I42.9 Cardiomyopathy, unspecified; R09.89 Other specified symptoms and signs involving the circulatory and respiratory systems; J84.9 Interstitial pulmonary disease, unspecified; S14.129S Central cord syndrome at unspecified level of cervical spinal cord, sequela; G82.20 Paraplegia, unspecified; Z99.3 Dependence on wheelchair; M19.90 Unspecified osteoarthritis, unspecified site; G62.9 Polyneuropathy, unspecified; E53.8 Deficiency of other specified B group vitamins; R11.0 Nausea; Z96.653 Presence of artificial knee joint, bilateral; Z88.0 Allergy status to penicillin; Z88.8 Allergy status to other drugs, medicaments and biological substances; Z79.899 Other long term (current) drug therapy; Z79.01 Long term (current) use of anticoagulants; Z66 Do not resuscitate
CPT/HCPCS: 36415; 51701; 71045; 80048; 81000; 81015; 83605; 84145; 85025; 85027; 85610; 87040; 87086; 87486; 87581; 87633; 87798; 93005; 93041; 94760; 96365; 96366; 96372; 96375; 97112; 97161; 97165; 97530; 97535; 99285; G0378; J0696; J2405; J3420